=== PATIENT | female | born 1945 | race African-American/Black ===

== ENCOUNTER 2018-03-30 07:30 | Inpatient (IN) ==
[2018-03-30] MEDS ORDERED: Naloxone 0.4 MG/ML INJ IVP PRN (07:57)
--- NOTE | 2018-03-30 09:27 | History & Physical Report ---
Date of Encounter: 03/30/18 Time of Encounter: 08:30 24 Hour HP Update - Instructions Instructions: If the History and Physical is less than 30 days old and was completed prior to A.M. admission and or procedure and has NOT been updated on calendar day of procedure please complete this update prior to performing procedure. - Update Patient reports changes in Medical Condition: No Changes in examination, assessment, or condition: No Changes in Medication: No Preop tests/diagnostics Reviewed: Yes
--- NOTE | 2018-03-30 09:32 | Event Note ---
Date of Encounter: 03/30/18 Time of Encounter: 08:30 - Cardiology Event Note Patient directly admitted to cardiology service for ASA desensitization to ICU. Patient is being evaluated for aortic valve replacement and requires LHC prior. Patient has allergy to ASA, that she took in the 1940s and had hives and d ifficulty breathing. Consult to allergy/immunology, , for ASA desensitization. 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 Last hemoglobin 7.7 03/19/18, will repeat CBC. Will continue to monitor.
[2018-03-30] MEDS ORDERED: Aspirin desensitization 4 mg/ml PO ONE ×4 (10:00)
[2018-03-30] MEDS ORDERED: *HR* EPINEPHrine 1 MG/ML AMPUL IM PRN (10:00)
[2018-03-30] MEDS ORDERED: Famotidine 20 MG/2 ML VIAL IVP PRN (10:00)
[2018-03-30] MEDS ORDERED: *HR* EPINEPHrine 1 MG/ML AMPUL IV PRN (10:00)
[2018-03-30] MEDS ORDERED: Aspirin 81 MG TAB.CHEW PO ONE (10:00)
[2018-03-30] MEDS ORDERED: Aspirin desensitization 1 mg/ml PO ONE ×3 (10:00)
[2018-03-30] MEDS ORDERED: methylPREDNISolone 125 MG/2 ML VIAL IVP PRN (10:00)
[2018-03-30 10:44] LABS: Immature Granulocytes % 0.2 % (0-4)
[2018-03-30 10:46] LABS: Basophils # 0.1 K/mcL (0.0-0.2); Basophils % 1.6 %; Eosinophils # 0.1 K/mcL (0.0-0.6); Eosinophils % 2.7 %; Hemoglobin 7.2 g/dL (11.5-15.4); Lymphocytes # 0.6 K/mcL (0.6-4.6); Lymphocytes % 12.2 %; Mean Corpuscular HGB Conc 28.8 g/dL (31.6-35.5); Mean Corpuscular Hemoglobin 17.8 pg (28.0-33.3); Mean Corpuscular Volume 61.7 fL (83.0-100.0); Monocytes # 0.4 K/mcL (0.0-1.3); Monocytes % 8.3 %; Neutrophils # 3.9 K/mcL (1.6-8.9); Platelet Count 161 K/mcL (140-400); Red Blood Count 4.05 M/mcL (3.82-4.97); Red Cell Distribution Width 25.3 % (11.5-14.5)
[2018-03-30 10:52] LABS: Anisocytosis 2+ (Not Present); Hypochromasia Present (Not Present); Microcytosis Present (Not Present); Platelet Estimate Normal (Normal)
[2018-03-30 11:02] LABS: BUN/Creatinine Ratio 24 (6-26); Blood Urea Nitrogen 18 mg/dL (8-23); Calcium 8.6 mg/dL (8.6-10.3); Carbon Dioxide 32 mEq/L (23-29); Chloride 102 mEq/L (98-107); Glucose 86 mg/dL (70-105); Osmolality,Calculated 287 (280-300); Potassium 4.7 mEq/L (3.5-5.1); Sodium 138 mEq/L (136-145); eGFR For Non-African Americans > 60 (> 60)
--- NOTE | 2018-03-30 11:44 | Discharge Summary ---
- NOTES TO OUTPATIENT PROVIDER Notes to Outpatient Provider: Admitted for ASA desensitization. Of note, has chronic anemia. Recommend close monitoring of hemoglobin, hematocrit as outpatient with addition of ASA. Date of Encounter: 03/30/18 Time of Encounter: 11:42 - Discharge Diagnosis (1) Aspirin allergy Priority: Primary Status: Chronic Comments: Admitted for ASA desensitization. (2) Aortic stenosis Priority: Secondary Status: Chronic Comments: Known . Admitted for ASA desensitization prior to further work up for . Qualifiers: Cardiac valve disease etiology: etiology unspecified Qualified Code(s): I35.0 - Nonrheumatic aortic (valve) stenosis - Hospital Course Hospital course: Ms. Castro is a 73 year old female with a known history of aortic stenosis, who is being worked up for aortic valve replacement. Patient was admitted to [facility] for asa desensitization prior to further work up for aortic stenosis. Patient will require LHC as some point prior to AV replacement. Discussed and reviewed with , who states LHC will be completed as outpatient to see if she tolerates ASA with known chronic anemia. 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 Per PCP's outpatient note, H/H monitored closely and being referred to hem/onc in outpateint setting. Denies bleeding or blood loss. Recommend close monitoring in outpatient setting with addition of ASA. Patient currently recieving ASA per 's protocol. Will plan for tentative discharge pending ASA desensitization and when ok with . Patient is being closely monitoring in ICU. Will arrange cardiology outpatient follow up. - Time Spent with Patient Total time spent providing and/or coordinating discharge services: Less than 30 minutes - Discharge Medications Home Medications: Albuterol Sulfate [Ventolin Hfa] 2 puff IH Q6H PRN 09/03/15 [History] Folic Acid 1 mg PO DAILY 03/30/18 [History] Hydroxychloroquine Sulfate [Plaquenil] 200 mg PO DAILY 03/30/18 [History] Ipratropium/Albuterol Sulfate [Iprat-Albut 0.5-3(2.5) mg/3 ml] 1 vial IH Q6H 03/30/18 [History] Leflunomide 10 mg PO DAILY 03/30/18 [History] Omeprazole [PriLOSEC] 20 mg PO DAILY 03/30/18 [History] Tiotropium Br/Olodaterol HCl [Stiolto Respimat Inhal [place]] 2 puff IH DAILY 03/30/18 [History] Allergies/Adverse Reactions: Allergy/AdvReac Type Severity Reaction Status Date / Time aspirin AdvReac Rash Verified 12/11/15 18:45 Onion AdvReac Rash Verified 12/11/15 18:45 Date of admission: 03/30/18 07:42 Primary care physician: PCP NONE Consults: 03/30/18 09:51 Consult to Allergy/Immunology [CONS] Routine Consulting Provider: Allergy [place] Reason for Consult: ASA desensitization. aware. Call Completed: Yes Discharging clinician: So Shafer Anticipated date of discharge: 03/30/18 Physical Examination Vital Signs, Last 4 Hours Temp Pulse Resp BP Pulse Ox 03/30/18 11:08 98.3 F 74 18 110/51 100 03/30/18 10:54 98.3 F 74 18 112/69 100 03/30/18 10:37 98.4 F 88 19 121/59 100 03/30/18 07:57 98.4 F 106 20 116/92 100 General: Conversant, No Apparent Distress HEENT: Atraumatic, Normocephaly, Mucus Membranes Moist Neck: No JVD, Normal carotid pulses Cardiac: Reg Rate and Rhythm, Normal S1 and S2, No Murmur Lungs: Normal Breath Sounds, No Wheeze, Rales, Rhonchi Neuro: Alert and responsive, No focal deficits noted Abdomen: Soft, Non-Tender Skin: No rashes noted on visualized skin Musculoskeletal: No Chest Wall Tenderness Extremities: No Clubbing, No Cyanosis, No Edema, Normal Pulses - Patient Status Disposition: Home, Self-Care Condition: Good Functional capacity at discharge: independent ambulation Overall status at discharge: patient is progressing back to baseline - Discharge Instructions Follow Up With: NONE,PCP [Primary Care Provider] - - Diet and Activity Activity: increase activity as tolerated Diet: advance to your usual diet
[2018-03-30 14:07] VITALS: BP 126/44
--- NOTE | 2018-03-30 16:28 | Allergy Procedure Note ---
Date of procedure: 03/30/18 Pre-op diagnosis: Adverse effect of drug, medicament, or biological substance (aspirin allerg Post-op diagnosis: same Procedure: Aspirin Desensitization Patient with history of aspirin allergy. See consult note for HPI details. I discussed risk and benefits with patient. I explained to patient the risk of an allergic reaction including itching, hives, swelling, airway closure, diarrhea, vomiting, drop in blood pressure, heart attack, or . Written consent obtained. Epinephrine, solumedrol, benadryl and pepcid at bedside. Dose 1- 0.1mg aspirin given PO, patient observed closely x 15 minutes, exam unchanged, patient denies any new complaints, vitals unchanged(see vitals recorded under vitals section) Dose 2- 0.3mg aspirin given PO, patient observed closely x 15 minutes, exam unchanged, patient denies any new complaints, vitals unchanged(see vitals recorded under vitals section) Dose 3- 1mg aspirin given PO, patient observed closely x 15 minutes, exam unchanged, patient denies any new complaints, vitals unchanged(see vitals recor ded under vitals section) Dose 4- 3mg aspirin given PO, patient observed closely x 15 minutes, exam unchanged, patient denies any new complaints, vitals unchanged(see vitals recorded under vitals section) Dose 5-10mg aspirin given PO, patient observed closely x 15 minutes, exam unchanged, patient denies any new complaints, vitals unchanged(see vitals recorded under vitals section) Dose 6-20mgmg aspirin given PO, patient observed closely x 15 minutes, exam unchanged, patient denies any new complaints, vitals unchanged(see vitals recorded under vitals section) Dose 7-40mg aspirin given PO, patient observed closely x 15 minutes, exam unchanged, Patient developed itching on back which resolved in 10 minutes without intervention, patients exam never changed, vitals unchanged(see vitals recorded under vitals section) Dose 8-81mg aspirin given PO, patient observed closely x 120 minutes, exam unchanged, patient denies any new complaints, vitals unchanged(see vitals recorded under vitals section) Patient has tolerated the procedure well. She is desensitized to aspirin. She should take 81mg daily. If she goes longer than 48 hours without aspirin she should then not take it and would need the procedure again. Total time spent with patient 3hours 45minutes. Anesthesia: none Was there an conference assistant present: Yes Light Truck Driver: Susan Nassar Condition: stable
--- NOTE | 2018-03-30 16:33 | Allergy Consult Note ---
Date of Encounter: 03/30/18 Time of Encounter: 10:00 Assessment and Plan (1) Adverse effect of other drugs, medicaments and biological substances, initial encounter Status: Acute Patient has history of aspirin allergy and requires aspirin per cardiology. Patient is admitted to ICU today for desensitization. 1. NPO 2. Consent signed 3. Patient will need to take 81mg of aspirin daily and if she goes longer than 48 hours without aspirin then she would need desensitization again. History of Present Illness Consult date: 03/30/18 Reason for consult: Drug allergy Requesting physician: Bhargavi Roberson History of present illness: 73 year old female presents today for aspirin desensitization. States when she was a child sometime in the 1940s she took aspirin and broke out in hives and had breathing difficulty. States she is able to take Aleve currently without issues. Past Med Surg Social Fam HX - Past Medical History Medical history: COPD Psychiatric history: no psych history - Past Surgical History Surgical History: appendectomy, hysterectomy, other Additional surgical history: abd tumor removal - Social History Smoking Status: Unknown if ever smoked Alcohol use: none Drug use: none - Family History Father Hx Family Cancer: Yes (unknown what kind) Medications and Allergies Albuterol Sulfate [Ventolin Hfa] 2 puff IH Q6H PRN 09/03/15 [History] Aspirin Enteric Coated [Aspirin EC] 81 mg PO DAILY #30 tablet. 03/30/18 [Rx] Folic Acid 1 mg PO DAILY 03/30/18 [History] Hydroxychloroquine Sulfate [Plaquenil] 200 mg PO DAILY 03/30/18 [History] Ipratropium/Albuterol Sulfate [Iprat-Albut 0.5-3(2.5) mg/3 ml] 1 vial IH Q6H 03/30/18 [History] Leflunomide 10 mg PO DAILY 03/30/18 [History] Omeprazole [PriLOSEC] 20 mg PO DAILY 03/30/18 [History] Tiotropium Br/Olodaterol HCl [Stiolto Respimat Inhal [place]] 2 puff IH DAILY 03/30/18 [History] Allergy/AdvReac Type Severity Reaction Status Date / Time aspirin AdvReac Rash Verified 12/11/15 18:45 Onion AdvReac Rash Verified 12/11/15 18:45 ROS Allergy - Constitutional Constitutional ROS: no headache(s) - EENT Nose, mouth and throat: no nasal congestion, no nasal discharge, no throat swelling, no tongue swelling - Cardiovascular Cardiovascular ROS IM: no chest pain - Respiratory dyspnea on exertion - Gastrointestinal Gastrointestinal: no nausea - Integumentary Integumentary: no rash - Allergic/Immunologic no tongue swelling, no throat swelling, no itchy eyes, no uticaria, no lip swelling Allergy Exam Initial Vital Signs Temp Pulse Resp BP Pulse Ox 98.4 F 106 20 116/92 100 03/30/18 07:57 03/30/18 07:57 03/30/18 07:57 03/30/18 07:57 03/30/18 07:57 - General physical appearance other (under weight) - Eyes other (no erythema) - ENT normal nares - Neck no lymphadectomy - Respiratory other (patient had decreased air movement, no audible wheezing, no distress or retractions, patient had improved air movement after 2 puffs of albuterol) - Abdomen Abdomen: non tender - Integumentary no rash - Additional Findings heart -RRR Results - Labs 03/30/18 10:24 03/30/18 10:24 Abnormal lab results Hgb 7.2 g/dL (11.5-15.4) L 03/30/18 10:24 Hct 25.0 % (35.3-44.9) L 03/30/18 10:24 MCV 61.7 fL (83.0-100.0) L 03/30/18 10:24 MCH 17.8 pg (28.0-33.3) L 03/30/18 10:24 MCHC 28.8 g/dL (31.6-35.5) L 03/30/18 10:24 RDW 25.3 % (11.5-14.5) H 03/30/18 10:24 Hypochromasia Present (Not Present) A 03/30/18 10:24 Anisocytosis 2+ (Not Present) A 03/30/18 10:24 Microcytosis Present (Not Present) A 03/30/18 10:24 Carbon Dioxide 32 mEq/L (23-29) H 03/30/18 10:24 POC Glucose 100 mg/dL (70-99) H 03/30/18 08:03 Diabetes panel 03/30/18 Range/Units 10:24 Sodium 138 (136-145) mEq/L Potassium 4.7 (3.5-5.1) mEq/L Chloride 102 (98-107) mEq/L Carbon Dioxide 32 H (23-29) mEq/L BUN 18 (8-23) mg/dL Creatinine 0.76 (0.60-1.20) mg/dL Glucose 86 (70-105) mg/dL Calcium 8.6 (8.6-10.3) mg/dL Calcium panel 03/30/18 Range/Units 10:24 Calcium 8.6 (8.6-10.3) mg/dL Pituitary panel 03/30/18 Range/Units 10:24 Sodium 138 (136-145) mEq/L Potassium 4.7 (3.5-5.1) mEq/L Chloride 102 (98-107) mEq/L Carbon Dioxide 32 H (23-29) mEq/L BUN 18 (8-23) mg/dL Creatinine 0.76 (0.60-1.20) mg/dL Glucose 86 (70-105) mg/dL Calcium 8.6 (8.6-10.3) mg/dL Adrenal panel 03/30/18 Range/Units 10:24 Sodium 138 (136-145) mEq/L Potassium 4.7 (3.5-5.1) mEq/L Chloride 102 (98-107) mEq/L Carbon Dioxide 32 H (23-29) mEq/L BUN 18 (8-23) mg/dL Creatinine 0.76 (0.60-1.20) mg/dL Glucose 86 (70-105) mg/dL Calcium 8.6 (8.6-10.3) mg/dL All other labs normal. Consult Discharge Plan - Plan Instructions: Aspirin (By mouth), Chronic Obstructive Pulmonary Disease (DC) Referrals: NONE,PCP [Primary Care Provider] - Prescriptions: Aspirin Enteric Coated [Aspirin EC] 81 mg PO DAILY #30 tablet.
== END 2018-03-30 14:38 | disposition home or self-care (01) | DRG 951 ==
LOC: ICNU → OBSVTOIN 07:42
PROVIDERS: ADMIT Internal Medicine Cardiovascular Disease; ATTEND Internal Medicine Cardiovascular Disease

== ENCOUNTER 2018-12-08 10:24 | Inpatient (IN) ==
[2018-12-08] MEDS ORDERED: methylPREDNISolone 125 MG/2 ML VIAL IVP ONE (10:34)
[2018-12-08] MEDS ORDERED: Ipratropium/Albuterol Neb 3 ML IH ONE (10:34)
--- NOTE | 2018-12-08 10:37 | Emergency Department Note ---
Disposition Clinical Impression: COPD (chronic obstructive pulmonary disease) Qualifiers: COPD type: COPD with acute exacerbation Qualified Code(s): J44.1 - Chronic obstructive pulmonary disease with (acute) exacerbation Disposition: Admitted As Inpatient Condition: Good Time of Disposition: 12:04 General Adult HPI - General Stated complaint: ADRIENNE Time Seen by Provider: 12/08/18 10:28 - History of Present Illness HPI Narrative: Patient 73-year-old female presents to emergency room with chief complaint of shortness of breath. Patient reports started having difficult breathing or act ually 2 days ago. Patient reports 3 days ago she stop smoking and 7 patient reports she has history of congestive heart failure and also COPD. Patient states that she has prior history of a leaky valve and states that she cannot get a good deep breath and states that she has been having these additional oxygen. The patient reports that it is worsened with exertion and states that she has been having such difficulty breathing she has been unable to eat for the last 2 days. The patient reports that it is not improved by anything - Related Data Home Medications Medication Instructions Recorded Confirmed Albuterol Sulfate [Ventolin Hfa] 2 puff IH Q4H PRN 09/03/15 12/08/18 Folic Acid 1 mg PO DAILY 03/30/18 12/08/18 Hydroxychloroquine Sulfate 200 mg PO DAILY 03/30/18 12/08/18 [Plaquenil] Ipratropium/Albuterol Sulfate 1 vial IH Q6H 03/30/18 12/08/18 [Iprat-Albut 0.5-3(2.5) mg/3 ml] Leflunomide 20 mg PO DAILY 03/30/18 12/08/18 Omeprazole [PriLOSEC] 20 mg PO DAILY 03/30/18 12/08/18 Tiotropium Br/Olodaterol HCl 2 puff IH DAILY 03/30/18 12/08/18 [Stiolto Respimat Inhal [place]] LORazepam [Ativan] 0.5 mg PO PRN PRN 04/22/18 12/08/18 Naproxen Sodium [Aleve] 220 mg PO Q12-24H PRN 04/22/18 12/08/18 Oxygen 1 each .ROUTE AD 06/22/18 12/08/18 Fluticasone Propionate [Flovent 1 puff IH BID 07/16/18 12/08/18 Hfa] Previous Rx's Medication Instructions Recorded Aspirin Enteric Coated [Aspirin EC] 81 mg PO DAILY #30 tablet. 03/30/18 Furosemide [Lasix] 20 mg PO DAILY PRN #15 tablet 07/19/18 Allergies Allergy/AdvReac Type Severity Reaction Status Date / Time Onion AdvReac Rash Verified 10/19/18 09:28 Sulfa (Sulfonamide AdvReac See Verified 10/19/18 09:28 Antibiotics) Comments All systems ED: reviewed and negative except as stated. Past Medical History - Past Medical History Medical history: Reports: COPD, GERD, valvular heart disease Surgical history: Reports: appendectomy, hysterectomy, other Psychiatric history: Reports: no psych history, anxiety - Social History Smoking Status: Current every day smoker Smokeless Tobacco Status: No Alcohol use: Reports: none Drug use: Reports: none Physical Exam General: Conversant and pleasant interactive and nontoxic. Head: Normocephalic/atraumatic Eyes:PERRLA, EOMI, no conjunctivitis Nares: Without d/c. Ears: No erythema or d/c noted. Oralpharnyx: P&MMM noted, Neck: Supple, no JVD or SURGICAL AIDE noted. Cardovascular: regular rate and rhythm without murmur, brisk capillary refill, no peripheral edema. Lungs: Diminished breath sounds bilaterally increased respiratory drive with mild to moderate respiratory distress, Abd: Soft nontender, Non Distended, no guarding, no rebound. : Defered Extremities: moves all extremities equally Neuro: AOx3, no obvious gross neuro deficit Psych: Normal Affect Derm: No rash noted Course Course Narrative: Patient has had improvement with the treatments and steroids in the ER still moderately short of breath. The chest x-ray shows no evidence of focal infiltrate the case was discussed with the hospitalist admit her and the patient will be accepted to the hospitalist service.. Vital Signs Temperature 98.9 F 12/08/18 10:29 Pulse Rate 114 12/08/18 10:29 Respiratory Rate 25 12/08/18 10:29 Blood Pressure 115/52 12/08/18 10:29 O2 Sat by Pulse Oximetry 100 12/08/18 10:29 Temperature 98.9 F 12/08/18 10:29 Pulse Rate 114 12/08/18 10:29 Respiratory Rate 18 12/08/18 11:13 Blood Pressure 115/52 08/28/19 10:29 O2 Sat by Pulse Oximetry 100 12/08/18 11:13 Oxygen Delivery Oxygen Delivery Nasal Cannula Medical Decision Making - Lab Data Result diagrams: 12/08/18 10:50 12/08/18 10:50 Lab Results 12/08/18 12/08/18 12/08/18 Range/Units 10:49 10:50 10:50 WBC 6.9 (4.3-11.1) K/mcL RBC 4.22 (3.82-4.97) M/mcL Hgb 7.8 L (11.5-15.4) g/dL Hct 29.1 L (35.3-44.9) % MCV 69.0 L (83.0-100.0) fL MCH 18.5 L (28.0-33.3) pg MCHC 26.8 L (31.6-35.5) g/dL RDW 26.7 H (11.5-14.5) % Plt Count 156 (140-400) K/mcL MPV TNP Immature Gran % 0.3 (0-4) % Seg Neutrophils % 85.3 % Lymphocytes % 4.5 % Monocytes % 9.2 % Eosinophils % 0.1 % Basophils % 0.6 % Neutrophils # 5.9 (1.6-8.9) K/mcL Lymphocytes # 0.3 L (0.6-4.6) K/mcL Monocytes # 0.6 (0.0-1.3) K/mcL Eosinophils # 0.0 (0.0-0.6) K/mcL Basophils # 0.0 (0.0-0.2) K/mcL Nucleated RBCs/100 WBC 0.3 H (0) /100 WBC Platelet Estimate Decreased L (Normal) Hypochromasia Present A (Not Present) Poikilocytosis 1+ A (Not Present) Anisocytosis 3+ A (Not Present) Microcytosis Present A (Not Present) Target Cells 1+ A (Not Present) Sodium 129 L (136-145) mEq/L Potassium 5.1 (3.5-5.1) mEq/L Chloride 87 L (98-107) mEq/L Carbon Dioxide 37 H (23-29) mEq/L BUN 34 H (8-23) mg/dL Creatinine 0.67 (0.60-1.20) mg/dL Est GFR ( Amer) > 60 (> 60) Est GFR (Non-Af Amer) > 60 (> 60) BUN/Creatinine Ratio 51 H (6-26) Glucose 106 H (70-105) mg/dL Calculated Osmolality 276 L (280-300) Lactic Acid (0.5-2.2) mmol/L Calcium 8.9 (8.6-10.3) mg/dL Troponin I 0.03 (< 0.04) ng/mL B-Natriuretic Peptide 493 H (Less than 100) pg/mL 12/08/18 Range/Units 10:50 WBC (4.3-11.1) K/mcL RBC (3.82-4.97) M/mcL Hgb (11.5-15.4) g/dL Hct (35.3-44.9) % MCV (83.0-100.0) fL MCH (28.0-33.3) pg MCHC (31.6-35.5) g/dL RDW (11.5-14.5) % Plt Count (140-400) K/mcL MPV Immature Gran % (0-4) % Seg Neutrophils % % Lymphocytes % % Monocytes % % Eosinophils % % Basophils % % Neutrophils # (1.6-8.9) K/mcL Lymphocytes # (0.6-4.6) K/mcL Monocytes # (0.0-1.3) K/mcL Eosinophils # (0.0-0.6) K/mcL Basophils # (0.0-0.2) K/mcL Nucleated RBCs/100 WBC (0) /100 WBC Platelet Estimate (Normal) Hypochromasia (Not Present) Poikilocytosis (Not Present) Anisocytosis (Not Present) Microcytosis (Not Present) Target Cells (Not Present) Sodium (136-145) mEq/L Potassium (3.5-5.1) mEq/L Chloride (98-107) mEq/L Carbon Dioxide (23-29) mEq/L BUN (8-23) mg/dL Creatinine (0.60-1.20) mg/dL Est GFR ( Amer) (> 60) Est GFR (Non-Af Amer) (> 60) BUN/Creatinine Ratio (6-26) Glucose (70-105) mg/dL Calculated Osmolality (280-300) Lactic Acid 0.7 (0.5-2.2) mmol/L Calcium (8.6-10.3) mg/dL Troponin I (< 0.04) ng/mL B-Natriuretic Peptide (Less than 100) pg/mL
[2018-12-08 11:03] LABS: Eosinophils % 0.1 %; Hemoglobin 7.8 g/dL (11.5-15.4); Immature Granulocytes % 0.3 % (0-4)
[2018-12-08 11:04] LABS: Basophils % 0.6 %; Hematocrit 29.1 % (35.3-44.9); Lymphocytes # 0.3 K/mcL (0.6-4.6); Lymphocytes % 4.5 %; Mean Corpuscular HGB Conc 26.8 g/dL (31.6-35.5); Mean Corpuscular Hemoglobin 18.5 pg (28.0-33.3); Monocytes # 0.6 K/mcL (0.0-1.3); Monocytes % 9.2 %; Neutrophils # 5.9 K/mcL (1.6-8.9); Nucleated Red Blood Cells 0.3 /100 WBC (0); Platelet Count 156 K/mcL (140-400); Red Blood Count 4.22 M/mcL (3.82-4.97); Red Cell Distribution Width 26.7 % (11.5-14.5); Segmented Neutrophils % 85.3 %; White Blood Count 6.9 K/mcL (4.3-11.1)
[2018-12-08 11:24] LABS: BUN/Creatinine Ratio 51 (6-26); Blood Urea Nitrogen 34 mg/dL (8-23); Calcium 8.9 mg/dL (8.6-10.3); Carbon Dioxide 37 mEq/L (23-29); Chloride 87 mEq/L (98-107); Glucose 106 mg/dL (70-105); Osmolality,Calculated 276 (280-300); Potassium 5.1 mEq/L (3.5-5.1); Sodium 129 mEq/L (136-145); Troponin I 0.03 ng/mL (< 0.04); eGFR For African Americans > 60 (> 60); eGFR For Non-African Americans > 60 (> 60)
[2018-12-08] MEDS ORDERED: Aspirin 325 MG TABLET PO SCH (11:45)
[2018-12-08 11:49] LABS: Anisocytosis 3+ (Not Present); Hypochromasia Present (Not Present); Microcytosis Present (Not Present); Platelet Estimate Decreased (Normal)
[2018-12-08 11:50] LABS: Poikilocytosis 1+ (Not Present); Target Cells 1+ (Not Present)
[2018-12-08] MEDS ORDERED: *HR* LORazepam 0.5 MG TABLET PO PRN (13:19)
[2018-12-08] MEDS ORDERED: Naloxone 0.4 MG/ML INJ IVP PRN (13:21)
[2018-12-08] MEDS ORDERED: Ondansetron 4 MG/2 ML VIAL IVP PRN (13:21)
--- NOTE | 2018-12-08 13:27 | Internal Med History&Physical ---
Date of Encounter: 12/08/18 Time of Encounter: 13:00 Internal Medicine - H&P: HPI Chief complaint: SOB Admitted From: Home History of present illness: Ms. Castro is a 73 year old female with history of oxygen dependent COPD, pulmonary hypertension, heart failure with preserved EF, severe aortic stenosis, presented to the ED with 3 day history of worsening dyspnea. Started gradually, associated with cough without mild sputum production that she is unable to characterize. She denies any fever/chills, sick contacts, chest pain, hemoptysis, palpitation, orthopnea, PND, or leg swelling. Denies any recent travel history or prolonged immobilization. Denies any nausea/vomiting, abdominal pain, change in bowel habits, or dysuria. She was using her nebulizer up to 2 times a day without significant relief hence decided come to the hospital for further evaluation. In the ED, she was afebrile but tachycardic and tachypneic. Saturating percent on 2.5 L on nasal cannula. Labwork showed known anemia of 7.8 and mild hyponatremia of 129. Creatinine was at her baseline but BUN was elevated at 34. Troponin negative, EKG shows sinus tachyc ardia without ST elevations. Chest x-ray did not show any acute cardiopulmonary process. She was given DuoNeb, IV Solu-Medrol, and admitted for further management. Past Med Surg Social Fam HX - Past Medical History Medical history: COPD, GERD, RA, valvular heart disease Additional medical history: chronic anemia-sees oncology for it Psychiatric history: no psych history, anxiety - Past Surgical History Surgical History: appendectomy, hysterectomy, other Additional surgical history: abd tumor removal 2003 - Social History Smoking Status: Current every day smoker Smokeless Tobacco Status: No Alcohol use: none Drug use: none - Family History Father Hx Family Cancer: Yes (unknown what kind) Internal Medicine - H&P: Meds Albuterol Sulfate [Ventolin Hfa] 2 puff IH Q4H PRN 09/03/15 [History] Aspirin Enteric Coated [Aspirin EC] 81 mg PO DAILY #30 tablet. 03/30/18 [Rx] Folic Acid 1 mg PO DAILY 03/30/18 [History] Hydroxychloroquine Sulfate [Plaquenil] 200 mg PO DAILY 03/30/18 [History] Ipratropium/Albuterol Sulfate [Iprat-Albut 0.5-3(2.5) mg/3 ml] 1 vial IH Q6H 03/30/18 [History] Leflunomide 20 mg PO DAILY 03/30/18 [History] Omeprazole [PriLOSEC] 20 mg PO DAILY 03/30/18 [History] Tiotropium Br/Olodaterol HCl [Stiolto Respimat Inhal Brewer] 2 puff IH DAILY 03/30/18 [History] LORazepam [Ativan] 0.5 mg PO PRN PRN 04/22/18 [History] Naproxen Sodium [Aleve] 220 mg PO Q12-24H PRN 04/22/18 [History] Oxygen 1 each .ROUTE AD 06/22/18 [History] Fluticasone Propionate [Flovent Hfa] 1 puff IH BID 07/16/18 [History] Furosemide [Lasix] 20 mg PO DAILY PRN #15 tablet 07/19/18 [Rx] Allergy/AdvReac Type Severity Reaction Status Date / Time Onion AdvReac Rash Verified 10/19/18 09:28 Sulfa (Sulfonamide AdvReac See Verified 10/19/18 09:28 Antibiotics) Comments All Systems PM: A 10-system review of systems was performed and is negative for pertinent findings except as documented above in the HPI. - Constitutional Vitals: Temp Pulse Resp BP Pulse Ox 98.9 F 114 20 110/42 100 12/08/18 10:29 12/08/18 10:29 12/08/18 12:49 12/08/18 12:49 12/08/18 11:13 Exam: General: Alert and oriented, mild distres and pursed lip breathing noted. Cachectic HEENT:EOMI, pupils equal, round and reactive. Cardiovascular:Normal S1 & S2, No JVD. Pulse regular and borderline tachycardic Lungs: Diminished bilaterally with scattered wheezes Abdomen:Soft, non-tender, no rigidity. Extremities:No deformity or swelling Neurological:Normal cognition and motor skills. Non-focal Skin:Normal color, no rash, no lesions. Pulses:Carotid and radial pulses normal +2. Rest of the physical exam is non contributory Internal Med - H&P Results - Labs CBC & Chem 7: 12/08/18 10:50 12/08/18 10:50 Labs: Short CBC 12/08/18 Range/Units 10:50 WBC 6.9 (4.3-11.1) K/mcL Hgb 7.8 L (11.5-15.4) g/dL Hct 29.1 L (35.3-44.9) % Plt Count 156 (140-400) K/mcL Neutrophils # 5.9 (1.6-8.9) K/mcL BMP 12/08/18 10:50 Sodium 129 L Potassium 5.1 Chloride 87 L Carbon Dioxide 37 H BUN 34 H Creatinine 0.67 Glucose 106 H Calcium 8.9 Cardiac Enzymes 12/08/18 Range/Units 10:50 Troponin I 0.03 (< 0.04) ng/mL - Impressions ITS Impressions Chest X-Ray 12/08/18 10:34 IMPRESSION: Small bilateral pleural effusions with bibasilar atelectasis. Advanced emphysematous changes. D/ / Jake Mendoza MD / Jake Mendoza MD Interpreting Provider: Jake Mendoza MD - Assessment and Plan (1) Acute exacerbation of chronic obstructive airways disease Current Visit: Yes Status: Acute Assessment and plan: Presented with progressive dyspnea and cough. Chest x-ray without infiltrates. No leukocytosis or fever. Patient has mild symptomatic improvement after being started on IV Solu-Medrol and DuoNeb as well. will continue steroid and schedule bronchodilator Check respiratory viral panel (2) Dehydration Current Visit: Yes Status: Acute Assessment and plan: Although her creatinine is at her baseline, her BUN/creatinine ratio is suggestive of mild dehydration in the setting of poor oral intake due to the above Hyponatremia can also be related to hypovolemic hyponatremia Will give 1 L of IV fluid overnight and monitor BMP Hold off on Lasix (3) Aortic stenosis Current Visit: No Status: Chronic Assessment and plan: currently being planned for TAVR Qualifiers: Cardiac valve disease etiology: etiology unspecified Qualified Code(s): I35.0 - Nonrheumatic aortic (valve) stenosis (4) Pulmonary HTN Current Visit: No Status: Chronic Assessment and plan: Last echocardiogram 03/2018 showed severe pulmonary hypertension, Poor overall p rognosis (5) Chronic diastolic heart failure Current Visit: Yes Status: Chronic Assessment and plan: Not in decompensation, Lasix on hold due to dehydration as above (6) Anemia Current Visit: No Status: Chronic Assessment and plan: History of thalassemia Hb 7.8 which is slightly lower than her baseline but she denies any signs and symptoms of bleeding will check FOBT prior to initiating subcutaneous heparin for DVT prophylaxis Qualifiers: Anemia type: other cause Other causes of anemia: other cause, not classified Qualified Code(s): D64.89 - Other specified anemias (7) DVT prophylaxis Current Visit: No Status: Acute Assessment and plan: EPCD while waiting for FOBT - Time Spent With Patient Total time spent is greater than 50% in coordination of care (as documented) at patient's floor/unit and/or counseling patient: 25 - 35 minutes
[2018-12-08] MEDS ORDERED: 0.9 % Sodium Chloride 1,000 ML IVC SCH (13:30)
[2018-12-08] MEDS: Ipratropium/Albuterol Neb 3 ML IH SCH ×3 (15:22→23:59)
[2018-12-08] MEDS ORDERED: NON-FORMULARY MEDICATION 1 EACH EACH (Fluticasone Propionate [Flovent Hfa] 1 PUFF) IH SCH (21:00)
[2018-12-09 02:37] LABS: Nucleated Red Blood Cells 0.5 /100 WBC (0); Red Cell Distribution Width 26.5 % (11.5-14.5)
[2018-12-09 02:38] LABS: Hemoglobin 6.1 g/dL (11.5-15.4); Immature Granulocytes % 0.3 % (0-4); Lymphocytes # 0.2 K/mcL (0.6-4.6); Lymphocytes % 4.8 %; Mean Corpuscular HGB Conc 26.5 g/dL (31.6-35.5); Mean Corpuscular Hemoglobin 17.9 pg (28.0-33.3); Mean Corpuscular Volume 67.4 fL (83.0-100.0); Monocytes # 0.7 K/mcL (0.0-1.3); Monocytes % 16.5 %; Neutrophils # 3.1 K/mcL (1.6-8.9); Platelet Count 102 K/mcL (140-400); Red Blood Count 3.41 M/mcL (3.82-4.97); Segmented Neutrophils % 78.4 %
[2018-12-09 02:55] LABS: BUN/Creatinine Ratio 40 (6-26); Blood Urea Nitrogen 37 mg/dL (8-23); Calcium 7.8 mg/dL (8.6-10.3); Carbon Dioxide 37 mEq/L (23-29); Chloride 91 mEq/L (98-107); Glucose 132 mg/dL (70-105); Osmolality,Calculated 285 (280-300); Potassium 4.7 mEq/L (3.5-5.1); Sodium 132 mEq/L (136-145); eGFR For African Americans > 60 (> 60); eGFR For Non-African Americans 59 (> 60)
[2018-12-09 03:36] LABS: Hypochromasia Present (Not Present); Microcytosis Present (Not Present); Poikilocytosis 1+ (Not Present); Target Cells 1+ (Not Present)
[2018-12-09 03:37] LABS: Anisocytosis 2+ (Not Present); Platelet Estimate Slight Decrease (Normal); Tear Drop Cells 1+ (Not Present)
[2018-12-09] MEDS: Ipratropium/Albuterol Neb 3 ML IH SCH ×6 (03:48→23:58)
[2018-12-09 07:58] LABS: Adenovirus Not Detected (Not Detect); Bordetella Pertussis Not Detected (Not Detect); Chlamydophila pneumoniae Not Detected (Not Detect); Coronavirus 229E Not Detected (Not Detect); Coronavirus HKU1 Not Detected (Not Detect); Coronavirus NL63 Not Detected (Not Detect); Coronavirus OC43 Not Detected (Not Detect); Human Metapneumovirus Not Detected (Not Detect); Human Rhinovirus/Enterovirus Not Detected (Not Detect); Influenza A Subtype 2009 H1 Not Detected (Not Detect); Influenza A Untypeable Not Detected (Not Detect); Influenza B Not Detected (Not Detect); Mycoplasma pneumoniae Not Detected (Not Detect); Parainfluenza Virus 1 Not Detected (Not Detect); Parainfluenza Virus 2 Not Detected (Not Detect); Parainfluenza Virus 3 Not Detected (Not Detect); Parainfluenza Virus 4 Not Detected (Not Detect); Respiratory Syncytial Virus Not Detected (Not Detect)
[2018-12-09] MEDS ORDERED: MethylPREDNISolone 40 MG/ML VIAL IVP SCH (08:00)
[2018-12-09 08:14] LABS: % Iron Saturation 27 % (15-50); Iron 40 mcg/dL (50-170); Transferrin 106 mg/dL (203-362)
[2018-12-09 08:21] LABS: Hematocrit 24.6 % (35.3-44.9); Hemoglobin 6.6 g/dL (11.5-15.4)
[2018-12-09] MEDS: Folic Acid 1 MG TABLET PO SCH (08:21)
[2018-12-09] MEDS ORDERED: Aspirin Enteric Coated 81 MG Tablet PO SCH (09:00)
[2018-12-09] MEDS ORDERED: 0.9 % Sodium Chloride 500 ML ONE (09:10)
--- NOTE | 2018-12-09 11:56 | Internal Med Progress Note ---
Hospitalist Progress Note - Encounter Date of Encounter: 12/09/18 Time of Encounter: 10:45 - Subjective Interval History: Minimal improvement in her shortness of breath, denies any melena, hematemesis, hematochezia, or bright red blood per rectum. According to the RN, patient had dark stool this morning which pt reports that it is her usual BM. - Exam Vitals: Temp Pulse Resp BP Pulse Ox 98.0 F 94 16 123/54 98 12/09/18 11:24 12/09/18 11:24 12/09/18 11:24 12/09/18 11:24 12/09/18 11:24 Exam: General: Alert and oriented, mild distres and pursed lip breathing noted. Cachectic HEENT:EOMI, pupils equal, round and reactive. Cardiovascular:Normal S1 & S2, No JVD. Pulse regular and borderline tachycardic Lungs: Diminished bilaterally with scattered wheezes Abdomen:Soft, non-tender, no rigidity. Extremities:No deformity or swelling Neurological:Normal cognition and motor skills. Non-focal Skin:Normal color, no rash, no lesions. Pulses:Carotid and radial pulses normal +2. Rest of the physical exam is non contributory - Assessment and Plan (1) Acute exacerbation of chronic obstructive airways disease Current Visit: Yes Status: Acute Assessment and Plan: Presented with progressive dyspnea and cough. Chest x-ray without infiltrates. No leukocytosis or fever. Patient has mild symptomatic improvement after being started on IV Solu-Medrol and DuoNeb as well. Respiratory viral panel -ve continue steroid and schedule bronchodilator (2) Anemia Current Visit: No Status: Chronic Assessment and Plan: Hemoglobin dropped from 7.8-6.1 this morning, 6.6 on repeat prior EGD/colonoscopy in 2016 were both unremarkable 1U pRBC transfusion today will hold off on ASA, switch PPI to IV 40mg BID and check FOBT. Would consider consulting GI depending on the result (3) Aortic stenosis Current Visit: No Status: Chronic Assessment and Plan: currently being planned for TAVR (4) Pulmonary HTN Current Visit: No Status: Chronic Assessment and Plan: Last echocardiogram 03/2018 showed severe pulmonary hypertension, Poor overall prognosis (5) Chronic diastolic heart failure Current Visit: Yes Status: Chronic Assessment and Plan: Not in decompensation, resume lasix from tomorrow (6) DVT prophylaxis Current Visit: No Status: Acute Assessment and Plan: EPCD while waiting for FOBT - Time Spent with Patient Total time spent is greater than 50% in coordination of care (as documented) at patient's floor/unit and/or counseling patient: 25 - 35 minutes Plan of Care Discussed with: patient Internal Medicine: Result - Labs CBC & Chem 7: 12/09/18 08:05 12/09/18 02:02 Labs: Short CBC 12/09/18 12/09/18 Range/Units 02:02 08:05 WBC 4.0 L (4.3-11.1) K/mcL Hgb 6.1 L D 6.6 L (11.5-15.4) g/dL Hct 23.0 L 24.6 L (35.3-44.9) % Plt Count 102 L (140-400) K/mcL Neutrophils # 3.1 (1.6-8.9) K/mcL BMP 12/09/18 02:02 Sodium 132 L Potassium 4.7 Chloride 91 L Carbon Dioxide 37 H BUN 37 H Creatinine 0.93 Glucose 132 H Calcium 7.8 L Cardiac Enzymes 12/08/18 Range/Units 16:26 Troponin I < 0.03 (< 0.04) ng/mL Consult Discharge Plan - Plan (2) Anemia Qualifiers: Anemia type: other cause Other causes of anemia: other cause, not classified Qualified Code(s): D64.89 - Other specified anemias (3) Aortic stenosis Qualifiers: Cardiac valve disease etiology: etiology unspecified Qualified Code(s): I35.0 - Nonrheumatic aortic (valve) stenosis
[2018-12-09] MEDS ORDERED: Furosemide 20 MG TABLET PO PRN (11:58)
[2018-12-09] MEDS ORDERED: Furosemide 20 MG/2 ML VIAL IVP ONE ×2 (12:12→12:16)
[2018-12-09] MEDS ORDERED: *HR* LORazepam 2 MG/ML VIAL ONE (12:16)
[2018-12-09 12:25] LABS: ABG Base Excess 10 mEq/L (-2 to 3); ABG HCO3 40 mEq/L (21-27); ABG Oxygen Saturation 96 % (95-98); ABG PCO2 92 mmHg (35-45); ABG PH 7.25 pH Units (7.32-7.45); ABG PO2 105 mmHg (85-104); ABG TCO2 43 mEq/L (20-26)
[2018-12-09] MEDS: *HR* LORazepam 2 MG/ML VIAL IVP PRN ×2 (12:32→22:13)
[2018-12-09] MEDS: MethylPREDNISolone 40 MG/ML VIAL IVP SCH ×2 (13:45→22:13)
[2018-12-09 15:13] LABS: Hematocrit 33.4 % (35.3-44.9); Hemoglobin 9.4 g/dL (11.5-15.4)
[2018-12-09 15:34] LABS: ABG Base Excess 12 mEq/L (-2 to 3); ABG HCO3 42 mEq/L (21-27); ABG Oxygen Saturation 99 % (95-98); ABG PCO2 89 mmHg (35-45); ABG PH 7.28 pH Units (7.32-7.45); ABG PO2 184 mmHg (85-104); ABG TCO2 45 mEq/L (20-26)
[2018-12-09 16:12] LABS: Bilirubin,Urine Negative (Negative); Blood,Urine Trace (Negative); Clarity,Urine Clear (Clear); Color,Urine Yellow (Yellow); Glucose,Urine (UA) Normal (Normal); Ketones,Urine Negative (Negative); Leukocyte Esterase,Urine Negative (Negative); Nitrite,Urine Negative (Negative); Protein,Urine 30 mg/dL (Neg-Trace); Specific Gravity,Urine 1.011 (1.010-1.025); Urobilinogen,Urine Normal (Normal)
[2018-12-09] MEDS: Pantoprazole 40 MG VIAL IVP SCH (17:44)
[2018-12-10] MEDS ORDERED: Morphine Sulfate 2 MG/ML SYRINGE IVP ONE (04:30)
[2018-12-10] MEDS: MethylPREDNISolone 40 MG/ML VIAL IVP SCH ×3 (04:42→19:58)
[2018-12-10] MEDS: Ipratropium/Albuterol Neb 3 ML IH SCH ×6 (04:54→23:58)
[2018-12-10 05:04] LABS: Hematocrit 36.6 % (35.3-44.9); Hemoglobin 10.2 g/dL (11.5-15.4); Mean Corpuscular HGB Conc 27.9 g/dL (31.6-35.5); Mean Corpuscular Hemoglobin 20.4 pg (28.0-33.3); Mean Corpuscular Volume 73.1 fL (83.0-100.0); Platelet Count 191 K/mcL (140-400); Red Blood Count 5.01 M/mcL (3.82-4.97); White Blood Count 10.9 K/mcL (4.3-11.1)
[2018-12-10 05:06] LABS: ABG Base Excess 6 mEq/L (-2 to 3); ABG HCO3 40 mEq/L (21-27); ABG Oxygen Saturation 96 % (95-98); ABG PCO2 127 mmHg (35-45); ABG PO2 116 mmHg (85-104); ABG TCO2 44 mEq/L (20-26)
[2018-12-10 05:20] LABS: BUN/Creatinine Ratio 47 (6-26); Blood Urea Nitrogen 33 mg/dL (8-23); Calcium 8.4 mg/dL (8.6-10.3); Carbon Dioxide 38 mEq/L (23-29); Chloride 89 mEq/L (98-107); Glucose 221 mg/dL (70-105); Osmolality,Calculated 286 (280-300); Potassium 5.1 mEq/L (3.5-5.1); Sodium 131 mEq/L (136-145); eGFR For African Americans > 60 (> 60); eGFR For Non-African Americans > 60 (> 60)
--- NOTE | 2018-12-10 05:33 | Procedure Note ---
Date of procedure: 12/10/18 Pre-op diagnosis: acute respiratory failure with hypercapnia Post-op diagnosis: same Procedure: Date: 12/10/2018 Time: 5:15am Indication: Respiratory Distress Resident: Dr. Luna Delgado Attending: Dr. Carrasco A time-out was completed verifying correct patient, procedure, site, positioning, and special equipment if applicable. The patient was placed in a flat position. Sedation was obtained using Versed 7mg, and additionally with Etomidate 10mg. The patient was easily ventilated using an ambu bag. The MAC 3 BLADE was used and inserted into the oropharynx at which time there was a Grade 1 view of the vocal cords. A 7.5-belizean endotracheal tube was inserted and visualized going through the vocal cords. The stylette was removed. Colorimetric change was visualized on the CO2 meter. Breath sounds were heard in both lung venegas equally. The endotracheal tube was placed at 23 cm, measured at the teeth. Dr. Carrasco was present for the entire procedure. A chest x-ray was ordered to assess for pneumothorax and verify endotrachealtube placement. Estimated Blood Loss: 0cc The patient tolerated the procedure well and there were no complications. Anesthesia: IV sedation Was there an assistant printer floor covering present: No Estimated blood loss (cc): 0 Specimen: 0 Pathology: none sent Condition: critical Disposition: ICU
[2018-12-10] MEDS ORDERED: 0.9 % Sodium Chloride 250 ML ONE (05:58)
--- NOTE | 2018-12-10 05:58 | Event Note ---
Date of Encounter: 12/10/18 Time of Encounter: 04:23 Was called to the patient's bedside as she was tachycardic with heart rate and 130s, RR 30. On examination the patient she appeared in acute respiratory distress with accessory muscle use, her lung sounds were constricted and she was not moving much air. Nurse stated that she had been on BiPAP all evening except for most recently for 30 minutes due to patient refusing to wear it. The BiPAP was placed back on the patient however, the patient continued to become fatigued. IV steroids and triple dunebs were given. An ABG was obtained and the patient had a pH 7.10, pCO2 127, HCO3 40, pO2 116 demonstrating a respiratory acidosis. As the patient was growing more fatigued it was determined that she would likely need intubation and that she was transferred to the ICU. She was then intubated with respiratory therapy present. Chest x-ray and repeat ABG were ordered. A consult to pulmonology was placed for vent management.
[2018-12-10] MEDS ORDERED: Artificial Tears SOLN 15 ML BOTTLE BOTH EYES PRN (06:02)
[2018-12-10] MEDS: Pantoprazole 40 MG VIAL IVP SCH ×2 (06:33→18:15)
[2018-12-10 06:34] LABS: ABG Base Excess 13 mEq/L (-2 to 3); ABG HCO3 37 mEq/L (21-27); ABG Oxygen Saturation 100 % (95-98); ABG PCO2 47 mmHg (35-45); ABG PO2 479 mmHg (85-104); ABG TCO2 39 mEq/L (20-26); Blood Gas Modality AF; Blood Gas PEEP 5 cm H2O; Blood Gas VT 400 cc
--- NOTE | 2018-12-10 07:51 | Pulmonology Consult Note ---
<Conor Hurst - Last Filed: 12/10/18 12:08> Date of Encounter: 12/10/18 Time of Encounter: 07:43 Assessment and Plan (1) Anemia Current Visit: No Status: Chronic Hemoglobin is currently 10.2 up from 6.6 Continue to monitor with daily CBC Transfusions if necessary Qualifiers: Anemia type: other cause Other causes of anemia: other cause, not classified Qualified Code(s): D64.89 - Other specified anemias (2) Dependence on continuous supplemental oxygen Current Visit: No Status: Chronic (3) Frailty Current Visit: No Status: Chronic Consult made to palliative care Consulted nutrition for tube feeds (4) COPD (chronic obstructive pulmonary disease) Current Visit: Yes Status: Chronic Qualifiers: COPD type: COPD with acute exacerbation Qualified Code(s): J44.1 - Chronic obstructive pulmonary disease with (acute) exacerbation (5) Aortic stenosis Current Visit: No Status: Chronic Monitor strictly for signs of hypertension Minimal sedation/paralysis as needed. Qualifiers: Cardiac valve disease etiology: etiology unspecified Qualified Code(s): I35.0 - Nonrheumatic aortic (valve) stenosis (6) CHF (congestive heart failure) Current Visit: No Status: Acute Daily chest x-rays, BMP, cautious fluid replacement if necessary Continue Lasix BiPAP as needed If able to wean from ventilator Qualifiers: Heart failure type: diastolic Heart failure chronicity: acute on chronic Qualified Code(s): I50.33 - Acute on chronic diastolic (congestive) heart failure (7) Acute respiratory failure Current Visit: No Status: Acute See above Qualifiers: Qualified Code(s): J96.00 - Acute respiratory failure, unspecified whether with hypoxia or hypercapnia (8) DVT prophylaxis Current Visit: No Status: Acute Heparin 5000 units 3 times a day (9) Diabetes Current Visit: Yes Status: Acute Low-dose sliding scale insulin 3 times a day before meals History of Present Illness Consult date: 12/10/18 Requesting physician: Luna Delgado Reason for consult: other (Vent management status post intubation) Chief complaint: Acute respiratory failure, COPD, CHF, severe aortic stenosis History of present illness: Patient is a 73-year-old female with a past medical history of diastolic congestive heart failure with preserved ejection fraction, severe end-stage COPD, severe aortic stenosis, pulmonary hypertension and presented to the ED on December 08 due to 2 day history of gradually progressive and worsening dyspnea associated with a productive cough with mild sputum production that she is unable to characterize. The patient's grandson/caregiver stated that for the past several months patient has had declining cognitive function with increasing confusion. Upon hospital admission the patient was found to be anemic and received one unit of packed red blood cells at which time she became progressively worse with breathing without a change in her O2 sat. Patient was noted to have crackles at her lung bases in ABG yielded a respiratory acidosis. Patient was given Lasix and transferred to [address] [place] [address] and placed on BiPAP. Overnight resident physician Dr. Luna Key stated that she was called patient's bedside early this morning due to worsening respiratory function. The patient was noted to be lethargic and was unable to protect her own airway best decision was made for emergent intubation at that time which was accomplished without difficulty. Patient was placed on a ventilator and transferred to ICU for further evaluation and management. Upon my initial evaluation the patient is intubated and mechanically ventilated with a propofol drip to a Jeter scale of 3. The patient appears to be relatively hypotensive however given her body habitus I encouraged by her maintaining a map greater than 65. At this time I will discontinue the propofol drip and switched to fentanyl and Precedex in order to prevent further hypotensive issues. Patient was noted have wheezes in the left lung [place], I do not know crackles or rhonchi, evaluation of the chest x-ray showed the patient was right mainstem intubation by approximately 1 cm, respiratory therapy was contacted to withdraw this tube by that amount. Due to concerns of possible pneumonia we will monitor with daily chest x-rays, I will add a pro calcitonin and CRP at this time for further laboratory evaluation, I will place palliative care consult for evaluation and further goals of care planning. Patient is otherwise hemodynamically stable at this time. Past Med Surg Social Fam HX - Past Medical History Medical history: COPD, GERD, RA, valvular heart disease Additional medical history: chronic anemia-sees oncology for it Psychiatric history: no psych history, anxiety - Past Surgical History Surgical History: appendectomy, hysterectomy, other Additional surgical history: abd tumor removal 2003 - Social History Smoking Status: Former smoker Smokeless Tobacco Status: No Alcohol use: none Drug use: none - Family History Father Living Status: Hx Family Cancer: Yes Medications and Allergies Aspirin Enteric Coated [Aspirin EC] 81 mg PO DAILY #30 tablet. 03/30/18 [Rx] Folic Acid 1 mg PO DAILY 03/30/18 [History] Hydroxychloroquine Sulfate [Plaquenil] 200 mg PO DAILY 03/30/18 [History] Leflunomide 20 mg PO DAILY 03/30/18 [History] Omeprazole [PriLOSEC] 20 mg PO DAILY 03/30/18 [History] Tiotropium Br/Olodaterol HCl [Stiolto Respimat Inhal [place]] 2 puff IH DAILY 03/30/18 [History] LORazepam [Ativan] 0.5 mg PO Q12H PRN 04/22/18 [History] Naproxen Sodium [Aleve] 220 mg PO Q12-24H PRN 04/22/18 [History] Fluticasone Propionate [Flovent Hfa] 1 puff IH BID 07/16/18 [History] Furosemide [Lasix] 20 mg PO DAILY PRN #15 tablet 07/19/18 [Rx] Allergy/AdvReac Type Severity Reaction Status Date / Time Sulfa (Sulfonamide AdvReac See Verified 12/09/18 10:32 Antibiotics) Comments ROS unobtainable: due to endotracheal tube, due to mental status All Systems: The remainder of the systems were reviewed and are negative Physical Examination Vital Signs: Vital Signs, Last 4 Hours Temp Pulse Resp BP Pulse Ox 12/10/18 07:00 74 9 105/56 97 12/10/18 06:00 84 16 86/61 100 12/10/18 05:45 16 91/66 100 12/10/18 05:30 97.8 F 85 16 63/52 100 12/10/18 05:00 97.8 F 117 19 146/60 100 12/10/18 04:56 30 100 General appearance: no acute distress, comatose ENT: oropharynx moist Neck: supple Effort: other (Mechanically ventilated) Auscultation: left: wheezes Cardiovascular: regular rate and rhythm, murmur noted (Patient with history of severe aortic stenosis) Gastrointestinal: normoactive bowel sounds, soft, non-distended Integumentary: normal Extremities: no cyanosis Musculoskeletal: no deformities unable to assess due to mental status, other (Patient is sedated and mechanically ventilated) Ventilator Settings Ventilator Settings: Ventilator Settings, Last 8 Hours Ventilator Tidal Volume 400 Setting Ventilator Tidal Volume 400 Setting Ventilator Tidal Volume 400 Setting Ventilator Respiratory Rate 12 Setting Ventilator Respiratory Rate 16 Setting Ventilator Respiratory Rate 16 Setting Ventilator Respiratory Rate 16 Setting Ventilator Respiratory Rate 10 Setting Actual Respiratory Rate 16 Actual Respiratory Rate 16 Positive End Expiratory 5 Pressure Positive End Expiratory 5 Pressure Positive End Expiratory 5 Pressure Peak Inspiratory Airway 47 Pressure Peak Inspiratory Airway 40 Pressure Results - Laboratory Findings CBC and BMP: 12/10/18 04:49 12/10/18 04:49 ABG ABG pH 7.50 pH Units (7.32-7.45) H D 12/10/18 06:31 ABG pCO2 47 mmHg (35-45) H D 12/10/18 06:31 ABG pO2 479 mmHg (85-104) H D 12/10/18 06:31 ABG O2 Saturation 100 % (95-98) H 12/10/18 06:31 Abnormal lab findings: Abnormal lab results WBC 4.0 K/mcL (4.3-11.1) L 12/09/18 02:02 RBC 5.01 M/mcL (3.82-4.97) H 12/10/18 04:49 Hgb 10.2 g/dL (11.5-15.4) L 12/10/18 04:49 Hct 33.4 % (35.3-44.9) L 12/09/18 14:57 MCV 73.1 fL (83.0-100.0) L 12/10/18 04:49 MCH 20.4 pg (28.0-33.3) L 12/10/18 04:49 MCHC 27.9 g/dL (31.6-35.5) L 12/10/18 04:49 RDW 27.0 % (11.5-14.5) H 12/10/18 04:49 Plt Count 102 K/mcL (140-400) L 12/09/18 02:02 Lymphocytes # 0.2 K/mcL (0.6-4.6) L 12/09/18 02:02 Nucleated RBCs/100 WBC 0.5 /100 WBC (0) H 12/09/18 02:02 Platelet Estimate Slight Decrease (Normal) L 12/09/18 02:02 Hypochromasia Present (Not Present) A 12/09/18 02:02 Poikilocytosis 1+ (Not Present) A 12/09/18 02:02 Anisocytosis 2+ (Not Present) A 12/09/18 02:02 Microcytosis Present (Not Present) A 12/09/18 02:02 Target Cells 1+ (Not Present) A 12/09/18 02:02 Tear Drop Cells 1+ (Not Present) A 12/09/18 02:02 ABG pH 7.50 pH Units (7.32-7.45) H D 12/10/18 06:31 ABG pCO2 47 mmHg (35-45) H D 12/10/18 06:31 ABG pO2 479 mmHg (85-104) H D 12/10/18 06:31 ABG HCO3 37 mEq/L (21-27) H 12/10/18 06:31 ABG Total CO2 39 mEq/L (20-26) H 12/10/18 06:31 ABG O2 Saturation 100 % (95-98) H 12/10/18 06:31 ABG Base Excess 13 mEq/L (-2 to 3) H 12/10/18 06:31 Sodium 131 mEq/L (136-145) L 12/10/18 04:49 Chloride 89 mEq/L (98-107) L 12/10/18 04:49 Carbon Dioxide 38 mEq/L (23-29) H 12/10/18 04:49 BUN 33 mg/dL (8-23) H 12/10/18 04:49 Est GFR (Non-Af Amer) 59 (> 60) L 12/09/18 02:02 BUN/Creatinine Ratio 47 (6-26) H 12/10/18 04:49 Glucose 221 mg/dL (70-105) H 12/10/18 04:49 Calculated Osmolality 276 (280-300) L 12/08/18 10:50 Calcium 8.4 mg/dL (8.6-10.3) L 12/10/18 04:49 Iron 40 mcg/dL (50-170) L 12/09/18 02:02 Transferrin 106 mg/dL (203-362) L 12/09/18 02:02 B-Natriuretic Peptide 493 pg/mL (Less than 100) H 12/08/18 10:49 Urine Protein 30 mg/dL (Neg-Trace) H 12/09/18 15:45 Urine Blood Trace (Negative) H 12/09/18 15:45 Crossmatch See Detail 12/09/18 06:48 - Microbiology Findings Microbiology Findings: Microbiology, Last 48 Hours 12/08/18 10:50 Blood Culture - Preliminary Peripheral Venipuncture Culture is incubating and being continuously monitored for growth. Final report to follow. 12/08/18 10:48 Blood Culture - Preliminary Peripheral Venipuncture Culture is incubating and being continuously monitored for growth. Final report to follow. - Clinical Findings Intake & Output: Intake & Output 12/09/18 12/09/18 12/10/18 15:59 23:59 07:59 Intake Total 900 / 2380 480 / 2380 Output Total 300 / 300 500 / 500 Balance 900 / 2080 180 / 2080 -500 / -500 Weight 29.6 kg Consult Discharge Plan - Plan Referrals: Jacqueline Hilton DO [Primary Care Provider] - <Nabor Izaguirre - Last Filed: 12/10/18 16:11> Date of Encounter: 12/10/18 All Systems: The remainder of the systems were reviewed and are negative Physical Examination Vital Signs: Vital Signs, Last 4 Hours Pulse Resp BP Pulse Ox 12/10/18 15:43 10 100 12/10/18 15:00 77 10 104/69 100 12/10/18 14:00 71 10 106/57 100 12/10/18 13:00 71 10 110/57 100 Ventilator Settings Ventilator Settings: Ventilator Settings, Last 8 Hours Ventilator Tidal Volume 350 Setting Ventilator Tidal Volume 350 Setting Ventilator Tidal Volume 350 Setting Ventilator Tidal Volume 350 Setting Ventilator Tidal Volume 350 Setting Ventilator Tidal Volume 350 Setting Ventilator Tidal Volume 350 Setting Ventilator Tidal Volume 350 Setting Ventilator Tidal Volume 350 Setting Ventilator Tidal Volume 350 Setting Ventilator Respiratory Rate 10 Setting Ventilator Respiratory Rate 10 Setting Ventilator Respiratory Rate 10 Setting Ventilator Respiratory Rate 10 Setting Ventilator Respiratory Rate 10 Setting Ventilator Respiratory Rate 9 Setting Ventilator Respiratory Rate 9 Setting Ventilator Respiratory Rate 9 Setting Ventilator Respiratory Rate 9 Setting Ventilator Respiratory Rate 9 Setting Actual Respiratory Rate 10 Actual Respiratory Rate 10 Actual Respiratory Rate 10 Actual Respiratory Rate 9 Actual Respiratory Rate 9 Actual Respiratory Rate 9 Actual Respiratory Rate 9 Actual Respiratory Rate 9 Positive End Expiratory 5 Pressure Positive End Expiratory 0 Pressure Positive End Expiratory 0 Pressure Positive End Expiratory 0 Pressure Positive End Expiratory 0 Pressure Positive End Expiratory 0 Pressure Positive End Expiratory 0 Pressure Positive End Expiratory 0 Pressure Positive End Expiratory 5 Pressure Positive End Expiratory 0 Pressure Peak Inspiratory Airway 26 Pressure Peak Inspiratory Airway 30 Pressure Peak Inspiratory Airway 30 Pressure Peak Inspiratory Airway 24 Pressure Peak Inspiratory Airway 24 Pressure Peak Inspiratory Airway 25 Pressure Peak Inspiratory Airway 27 Pressure Peak Inspiratory Airway 25 Pressure Peak Inspiratory Airway 28 Pressure Peak Inspiratory Airway 24 Pressure Results - Laboratory Findings CBC and BMP: 12/10/18 04:49 12/10/18 04:49 ABG ABG pH 7.43 pH Units (7.32-7.45) 12/10/18 11:42 ABG pCO2 57 mmHg (35-45) H 12/10/18 11:42 ABG pO2 77 mmHg (85-104) L D 12/10/18 11:42 ABG O2 Saturation 95 % (95-98) 12/10/18 11:42 Abnormal lab findings: Abnormal lab results WBC 4.0 K/mcL (4.3-11.1) L 12/09/18 02:02 RBC 5.01 M/mcL (3.82-4.97) H 12/10/18 04:49 Hgb 10.2 g/dL (11.5-15.4) L 12/10/18 04:49 Hct 33.4 % (35.3-44.9) L 12/09/18 14:57 MCV 73.1 fL (83.0-100.0) L 12/10/18 04:49 MCH 20.4 pg (28.0-33.3) L 12/10/18 04:49 MCHC 27.9 g/dL (31.6-35.5) L 12/10/18 04:49 RDW 27.0 % (11.5-14.5) H 12/10/18 04:49 Plt Count 102 K/mcL (140-400) L 12/09/18 02:02 Lymphocytes # 0.2 K/mcL (0.6-4.6) L 12/09/18 02:02 Nucleated RBCs/100 WBC 0.5 /100 WBC (0) H 12/09/18 02:02 Platelet Estimate Slight Decrease (Normal) L 12/09/18 02:02 Hypochromasia Present (Not Present) A 12/09/18 02:02 Poikilocytosis 1+ (Not Present) A 12/09/18 02:02 Anisocytosis 2+ (Not Present) A 12/09/18 02:02 Microcytosis Present (Not Present) A 12/09/18 02:02 Target Cells 1+ (Not Present) A 12/09/18 02:02 Tear Drop Cells 1+ (Not Present) A 12/09/18 02:02 ABG pH 7.50 pH Units (7.32-7.45) H D 12/10/18 06:31 ABG pCO2 57 mmHg (35-45) H 12/10/18 11:42 ABG pO2 77 mmHg (85-104) L D 12/10/18 11:42 ABG HCO3 37 mEq/L (21-27) H 12/10/18 11:42 ABG Total CO2 39 mEq/L (20-26) H 12/10/18 11:42 ABG O2 Saturation 100 % (95-98) H 12/10/18 06:31 ABG Base Excess 11 mEq/L (-2 to 3) H 12/10/18 11:42 Sodium 131 mEq/L (136-145) L 12/10/18 04:49 Chloride 89 mEq/L (98-107) L 12/10/18 04:49 Carbon Dioxide 38 mEq/L (23-29) H 12/10/18 04:49 BUN 33 mg/dL (8-23) H 12/10/18 04:49 Est GFR (Non-Af Amer) 59 (> 60) L 12/09/18 02:02 BUN/Creatinine Ratio 47 (6-26) H 12/10/18 04:49 Glucose 221 mg/dL (70-105) H 12/10/18 04:49 Calculated Osmolality 276 (280-300) L 12/08/18 10:50 Calcium 8.4 mg/dL (8.6-10.3) L 12/10/18 04:49 Iron 40 mcg/dL (50-170) L 12/09/18 02:02 Transferrin 106 mg/dL (203-362) L 12/09/18 02:02 B-Natriuretic Peptide 493 pg/mL (Less than 100) H 12/08/18 10:49 Urine Protein 30 mg/dL (Neg-Trace) H 12/09/18 15:45 Urine Blood Trace (Negative) H 12/09/18 15:45 Crossmatch See Detail 12/09/18 06:48 - Clinical Findings Intake & Output: Intake & Output 12/10/18 12/10/18 12/10/18 07:59 15:59 23:59 Intake Total 58.5 / 58.5 Output Total 500 / 850 350 / 850 Balance -500 / -791.5 -291.5 / -791.5 Weight 29.6 kg - Attending Attestation I examined this patient and my medical decision-making was reviewed with the Resident Physician. I agree with the documented findings, disposition and treatment plan as described except to the extent set forth below. We independently had [id number] contact with the patient I spent 40min of Critical Care time with this patient. It involved decision making of high complexity to assess, manipulate, and support vital organ system failure and/or to prevent further life threatening deterioration of the patient's condition. The time involved in the performance of separately report able procedures was not counted toward critical care time. Patient seen and examined at bedside Labs, radiology, chart personally reviewed. Management was reviewed during multidisciplinary critical care rounds. FARE ENFORCEMENT OFFICER: She is encephalopathic and sedated now on the vent will continue daily sedation holiday Pulm: Acute on chronic hypoxic hypercapnic respiratory failure secondary to COPD exacerbation presented with respiratory failure and acidosis as a result but now has actually respiratory alkalosis from overventilation I have adjusted her ventilator to improve her peak inspiratory pressures and increased her JANAK with ratio. Also continue treatment for COPD exacerbation and will assess for candidacy of spontaneous breathing trial although at this time she is not a candidate. Cards: She has a tachycardia and diastolic heart failure also with pulmonary hypertension and severe aortic stenosis will need to maintain cardiac perfusion gradient and she is at high risk for cardiopulmonary/hemodynamic collapse because of the severity of her aortic stenosis May need vasopressor support. Currently blood pressures monitored and stable would avoid overdiuresis GI: Stress ulcer prophylaxis given Nutrition: Nothing by mouth for now Renal: UOP Monitored, Cont to Trend sCr and monitor Electrolytes. ID: No clear evidence of infection we will continue to monitor this closely Heme/Onc: DVT prophylaxis given Endo: Glucose Monitored Integ/MSK: Skin Care per routine ICU Nursing Protocol to prevent ulcers. Lines: All lines examined without evidence of infection : Dispo: Monitor in ICU for critical illness CODE: DNAR - patient will need palliative care consultation overall prognosis guarded to poor given severity of her cardiac disease and respiratory failure
[2018-12-10] MEDS: FentaNYL (PF) 1,000 MCG in 0.9 % Sodium Chloride 80 ML IVC SCH (07:55)
[2018-12-10] MEDS: Artificial Tears SOLN 15 ML BOTTLE BOTH EYES SCH ×5 (07:56→23:25)
[2018-12-10] MEDS: Dexmedetomidine HCl 400 MCG/100 ML MLS IVC SCH (08:08)
[2018-12-10] MEDS: Folic Acid 1 MG TABLET PO SCH (09:33)
[2018-12-10] MEDS: Chlorhexidine Rinse 15 ML MOUTHWASH MM SCH ×2 (09:33→19:58)
[2018-12-10] MEDS ORDERED: *HR* Dextrose 50 % in Water (Syg) 50 ML SYRINGE IVP PRN (10:36)
[2018-12-10] MEDS ORDERED: Dextrose Gel 15 GM/37.5 ML TUBE PO PRN ×2 (10:36)
[2018-12-10] MEDS ORDERED: D5% in Water 1,000 ML IVC PRN (10:36)
[2018-12-10] MEDS: Insulin LISPRO 300 UNITS/3 ML VIAL SQ SCH ×2 (11:27→16:12)
[2018-12-10 11:45] LABS: ABG Base Excess 11 mEq/L (-2 to 3); ABG HCO3 37 mEq/L (21-27); ABG Oxygen Saturation 95 % (95-98); ABG PCO2 57 mmHg (35-45); ABG PH 7.43 pH Units (7.32-7.45); ABG PO2 77 mmHg (85-104); ABG TCO2 39 mEq/L (20-26); Blood Gas Modality ASSIST CONTROL; Blood Gas PEEP 5 cm H2O; Blood Gas VT 350 cc
[2018-12-10] MEDS ORDERED: *HR* LORazepam 2 MG/ML VIAL IVP ONE (11:52)
--- NOTE | 2018-12-10 12:35 | Palliative - Consult Note ---
Date of Encounter: 12/10/18 Time of Encounter: 12:33 - Assessment and Plan (1) Goals of care, counseling/discussion Current Visit: Yes Status: Acute Assessment and plan: Pt currently does not have capacity to make complex medical decisions. Pt's son Jarvis (lives in [place]) is LNOK and therefore the surrogate decision-maker. No a dvanced directives are known to be in place. Palliative placed phone call to Jarvis today to update him on pt's current clinical condition. Voicemail - Left message with my contact information. Pt currently lives with close friend/caregiver Ezra. Spoke with Ezra over the phone today to obtain f urther information. Ezra states that he has been with patient the last 3-4 years, that she took him in when he was 16. He states that she was not in good living situation, and with son Jarvis's permission, moved her in with him here in [place]. She has PP 20 hours per week through [place], home oxygen, w/c, walker. Jere states that until last August or so, patient was fairly independent, however, over the summer has been confined to her bed and he has been taking meals into her room. States she has been eating less and getting more confused. States that son has not contacted her in about 1.5 years, but later stated it was about 3 years. He did speak with pt son yesterday and he is aware she is here. We will continue to attempt to reach son and follow patient's clinical course. (2) Generalized pain Current Visit: Yes Status: Acute Assessment and plan: Pt intubated and sedated. Appears comfortable, currently on Fentanyl gtt for sedation per primary team. (3) Agitation Current Visit: Yes Status: Acute Assessment and plan: Management per primary team. Pt currently on Propofol, Fentanyl and Precedex gtt for sedation/agitation. (4) Palliative care encounter Current Visit: Yes Status: Acute (5) Aortic stenosis Current Visit: No Status: Chronic Assessment and plan: Last EF 60% severe and PAH. Follows with Dr. Bell (Cardiology) and Dr. Izaguirre (Pulmonary) Per last cardiology note, pt was referred to [facility] for TAVR but not candidate. Qualifiers: Cardiac valve disease etiology: etiology unspecified Qualified Code(s): I35.0 - Nonrheumatic aortic (valve) stenosis (6) COPD (chronic obstructive pulmonary disease) Current Visit: Yes Status: Chronic Qualifiers: COPD type: COPD with acute exacerbation Qualified Code(s): J44.1 - Chronic obstructive pulmonary disease with (acute) exacerbation Palliative-CN HPI - Data of Consult Consult date: 12/10/18 Requesting Physician: Nilesh Alvarez MD Primary Care Provider: Moses Rehman - Consult Narrative Palliative Care/Comfort Measures: Palliative care Reason for consult: Goals of Care History of present illness: Ms. Castro is a 73 year old female with hx of severe , COPD, chronic anemia and pulmonary hypertension admitted with increased SOB. Admission c/b anemia, blood transfusion and respiratory distress ultimately resulting in intubation and ICU transfer where she is being treated for CHF and acute respiratory failure. Palliative Care is consulted to assist with goals of care. CC: Nilesh Alvarez MD - Time Spent with Patient Time: Total time spent is greater than 50% in coordination of care (as documented) at patient's floor/unit and/or counseling patient: Time with patient: 45 minutes Past Med Surg Social Fam HX - Past Medical History Medical history: COPD, GERD, RA, valvular heart disease Additional medical history: chronic anemia-follows with hematology Psychiatric history: no psych history, anxiety - Past Surgical History Surgical History: appendectomy, hysterectomy Additional surgical history: abd tumor removal 2003 - Social History Smoking Status: Former smoker Smokeless Tobacco Status: No Alcohol use: none Drug use: none - Family History Father Living Status: Hx Family Cancer: Yes Medications and Allergies Aspirin Enteric Coated [Aspirin EC] 81 mg PO DAILY #30 tablet. 03/30/18 [Rx] Folic Acid 1 mg PO DAILY 03/30/18 [History] Hydroxychloroquine Sulfate [Plaquenil] 200 mg PO DAILY 03/30/18 [History] Leflunomide 20 mg PO DAILY 03/30/18 [History] Omeprazole [PriLOSEC] 20 mg PO DAILY 03/30/18 [History] Tiotropium Br/Olodaterol HCl [Stiolto Respimat Inhal [place]] 2 puff IH DAILY 03/30/18 [History] LORazepam [Ativan] 0.5 mg PO Q12H PRN 04/22/18 [History] Naproxen Sodium [Aleve] 220 mg PO Q12-24H PRN 04/22/18 [History] Fluticasone Propionate [Flovent Hfa] 1 puff IH BID 07/16/18 [History] Furosemide [Lasix] 20 mg PO DAILY PRN #15 tablet 07/19/18 [Rx] Allergy/AdvReac Type Severity Reaction Status Date / Time Sulfa (Sulfonamide AdvReac See Verified 12/09/18 10:32 Antibiotics) Comments ROS unobtainable: due to endotracheal tube Palliative Care-Exam - Constitutional Vitals: Temp Pulse Resp BP Pulse Ox 96.7 F L 82 10 95/49 100 12/10/18 12:03 12/10/18 12:00 12/10/18 12:00 12/10/18 12:00 12/10/18 12:00 - Other Additional findings: CONSTITUTIONAL/GENERAL: ill-appearing, intubated, sedated, minimally responsive on exam. EYES: Pupils intact, reactive and symmetric. Ear/Nose/Mouth/Throat (EMNT): Patent, dry mucous membranes. ET tube present, OG present. CARDIOVASCULAR: Tachycardia noted. Systolic murmur. No edema RESPIRATORY: on ventilator, Peep 0, TV 350, 30% Fi02. Breathing unlabored. GASTROINTESTINAL: Soft, non-distended, OG present. GENITOURINARY: Gee catheter. MUSCULOSKELETAL: No clubbing/cyanosis/ischemia. No deformities. INTEGUMENTARY: No rashes or lesions noted. NEUROLOGIC: Unable to assess d/t clinical condition- sedated. PSYCHIATRY: Unable to assess d/t clinical condition-sedated. Internal Medicine - CN: Reslt - Labs CBC & Chem 7: 12/10/18 04:49 12/10/18 04:49 Labs: Short CBC 12/09/18 12/10/18 Range/Units 14:57 04:49 WBC 10.9 D (4.3-11.1) K/mcL Hgb 9.4 L D 10.2 L (11.5-15.4) g/dL Hct 33.4 L 36.6 (35.3-44.9) % Plt Count 191 D (140-400) K/mcL BMP 12/10/18 04:49 Sodium 131 L Potassium 5.1 Chloride 89 L Carbon Dioxide 38 H BUN 33 H Creatinine 0.70 Glucose 221 H Calcium 8.4 L Urine 12/09/18 Range/Units 15:45 Urine Color Yellow (Yellow) Urine Clarity Clear (Clear) Urine pH 6.0 (5.0-8.0) pH Units Ur Specific [place] 1.011 (1.010-1.025) Urine Protein 30 H (Neg-Trace) mg/dL Urine Glucose (UA) Normal (Normal) mg/dL - ABG Interpretation ABG results: ABG ABG pH 7.43 pH Units (7.32-7.45) 12/10/18 11:42 ABG pCO2 57 mmHg (35-45) H 12/10/18 11:42 ABG pO2 77 mmHg (85-104) L D 12/10/18 11:42 ABG O2 Saturation 95 % (95-98) 12/10/18 11:42 - Impressions Impressions Chest X-Ray 12/10/18 04:34 IMPRESSION: 1. Status post endotracheal tube placement with tip in the proximal right mainstem bronchus, recommend retraction of approximately 4 cm. Satisfactory enteric tube placement. 2. Stable appearing chest findings described. Critical results were called by Dr. Lm Higgins MD to Luna Delgado on 12/10/2018 at 6:58 a.m.. D/ / Lm Higgins MD / Lm Higgins MD Interpreting Provider: Lm Higgins MD Chest X-Ray 12/10/18 08:06 IMPRESSION: Endotracheal tube appears slightly retracted as compared to chest x-ray earlier today but still appears to be low lying with tip 6 mm from the indira. Suggest retraction by 2 cm. Enteric tube redemonstrated with tip in the proximal body of the stomach and side-port likely at or just distal to the gastroesophageal junction. Consider advancement by 5 cm. Stable appearance to the heart and lungs with small bilateral pleural effusions along with COPD changes. D/ / 12/10/2018 08:52:06 Reji Rodrigez MD / maricarmen Interpreting Provider: Reji Rodrigez MD Consult Discharge Plan - Plan Referrals: Jacqueline Hilton, [Primary Care Provider] - Palliative Quality Palliative Quality: Screen for Code Status: NA (Pt intubated, phonecall placed to pt's son (LNOK).), Screen for Goals of Care: No, Screen for Pain: Yes, If Pain Regimen Started, Initiate Bowel Regimen: NA, Screen for Nausea/Vomitting: NA Code Status: 12/08/18 13:21 Resuscitation Status: Active [RES] Routine Comment: Resuscitation Status: Full Code
[2018-12-10] MEDS ORDERED: *HR* Midazolam HCl 2 MG/2 ML VIAL IV ONE (12:41)
[2018-12-10] MEDS ORDERED: *HR* Midazolam HCl 5 MG/5 ML VIAL IVP ONE (12:41)
[2018-12-10] MEDS ORDERED: *HR* Etomidate 20 MG/10 ML AMPUL IVP ONE (12:41)
[2018-12-10] MEDS: *HR* Heparin 5,000 UNIT/ML VIAL SQ SCH ×2 (13:25→21:21)
--- NOTE | 2018-12-10 16:00 | Event Note ---
Date of Encounter: 12/10/18 Time of Encounter: 14:50 Patient's son Jarvis Aden ([id number]) returned my call. Jarvis states that his mother (Alcira) gave him up at and he only discovered who she was 4-5 yrs ago. States that she did come to [place] to meet with him and they have limited contact. Discussed her clinical status and multiple medical problems. Jarvis did state that he does desire to make medical decisions for her. He states that him and the patient's caregiver Jere, do keep in touch and communicate occasionally. He does trust that Jere has her best interest at [facility] and desires for Jere to decide which ECF locally to admit her to following discharge, as they have discussed it is not safe for her to be alone. Code status discussed at length, Jarvis did transition patient to DNRCC-Arrest. At this time, if she were extubated, he desires reintubation if she has further respiratory decline. He plans to attempt to arrange to visit here in the near future, but cannot give any definite information r/t his work. I discussed that if she is re-intubated, with her poor respiratory reserve, we would likely need to rediscuss. Jarvis did state that he works 11 hour days and cannot have his phone, however, he does check his messages about every 3 hours. Updated ICU primary nurse Makayla regarding conversation and change in code status.
[2018-12-11] MEDS: Artificial Tears SOLN 15 ML BOTTLE BOTH EYES SCH ×2 (03:43→08:50)
[2018-12-11] MEDS: Ipratropium/Albuterol Neb 3 ML IH SCH ×7 (03:57→23:58)
[2018-12-11] MEDS: Pantoprazole 40 MG VIAL IVP SCH ×2 (05:02→18:01)
[2018-12-11] MEDS: *HR* Heparin 5,000 UNIT/ML VIAL SQ SCH ×3 (05:02→21:17)
[2018-12-11] MEDS: MethylPREDNISolone 40 MG/ML VIAL IVP SCH ×3 (05:02→21:16)
[2018-12-11 05:04] LABS: Basophils % 0.1 %; Immature Granulocytes % 0.5 % (0-4)
[2018-12-11 05:05] LABS: Hematocrit 31.5 % (35.3-44.9); Lymphocytes # 0.1 K/mcL (0.6-4.6); Lymphocytes % 0.7 %; Mean Corpuscular HGB Conc 28.6 g/dL (31.6-35.5); Mean Corpuscular Hemoglobin 20.2 pg (28.0-33.3); Mean Corpuscular Volume 70.6 fL (83.0-100.0); Monocytes # 0.6 K/mcL (0.0-1.3); Neutrophils # 15.1 K/mcL (1.6-8.9); Platelet Count 132 K/mcL (140-400); Red Blood Count 4.46 M/mcL (3.82-4.97); Red Cell Distribution Width 28.1 % (11.5-14.5); Segmented Neutrophils % 94.7 %; White Blood Count 15.9 K/mcL (4.3-11.1)
[2018-12-11 05:21] LABS: Alanine Aminotransferase 14 Units/L (7-52); Albumin 3.6 g/dL (3.5-5.7); Albumin/Globulin Ratio 1.8 (1.1-2.2); Alkaline Phosphatase 50 Units/L (34-104); Aspartate Amino Transferase 22 Units/L (13-39); BUN/Creatinine Ratio 50 (6-26); Bilirubin,Total 0.5 mg/dL (0.3-1.0); Blood Urea Nitrogen 38 mg/dL (8-23); Calcium 8.8 mg/dL (8.6-10.3); Carbon Dioxide 38 mEq/L (23-29); Chloride 92 mEq/L (98-107); Glucose 128 mg/dL (70-105); Osmolality,Calculated 291 (280-300); Sodium 135 mEq/L (136-145); Total Protein 5.6 g/dL (6.4-8.9); eGFR For African Americans > 60 (> 60); eGFR For Non-African Americans > 60 (> 60)
[2018-12-11 05:53] LABS: Anisocytosis 3+ (Not Present); Hypochromasia Present (Not Present); Platelet Estimate Slight Decrease (Normal); Polychromasia 2+ (Not Present)
[2018-12-11 05:54] LABS: Microcytosis Present (Not Present)
--- NOTE | 2018-12-11 08:14 | Pulmonology Progress Note ---
Date of Encounter: 12/11/18 Time of Encounter: 08:14 Assessment and Plan (1) Acute on chronic respiratory failure with hypoxia and hypercapnia Current Visit: Yes Status: Acute This is improving she has been weaned to nasal cannula is secondary to COPD ex acerbation complicated by her underlying cardiac valvular heart disease and pulmonary hypertension. Continue supplemental oxygen to keep saturation greater than 80% she will benefit from not getting out of bed to chair and PT O2 consultation (2) Acute exacerbation of chronic obstructive airways disease Current Visit: Yes Status: Acute We will continue IV steroids for today and can transition to by mouth prednisone with plan for two-week taper Cont scheduled bronchodilators Outpatient pulmonary follow-up - she is established in my clinic (3) Pulmonary HTN Current Visit: No Status: Chronic This is a combination of factors including valvular heart disease and severe COPD (4) Chronic diastolic heart failure Current Visit: Yes Status: Chronic Restart low-dose diuretic and will add beta isaura today (5) Aortic stenosis Current Visit: Yes Status: Acute She is at risk for wide pressure swings because of the severity of her underlying aortic stenosis and is reliant upon 90 cardiac perfusion gradient so would avoid any aggressive diuresis or tachycardia/tachyarrhythmias as possible Qualifiers: Cardiac valve disease etiology: etiology unspecified Qualified Code(s): I35.0 - Nonrheumatic aortic (valve) stenosis (6) Goals of care, counseling/discussion Current Visit: Yes Status: Acute DNAR Stable for transfer to the floor for ongoing care Objective PUL Vital signs: Last Vital Signs Temp 98.7 F 12/11/18 07:20 Pulse 113 12/11/18 07:00 Resp 22 12/11/18 07:00 BP 127/57 12/11/18 07:00 Pulse Ox 100 12/11/18 07:00 Results - Laboratory Findings CBC and BMP: 12/11/18 04:31 12/11/18 04:31 ABG ABG pH 7.43 pH Units (7.32-7.45) 12/10/18 11:42 ABG pCO2 57 mmHg (35-45) H 12/10/18 11:42 ABG pO2 77 mmHg (85-104) L D 12/10/18 11:42 ABG O2 Saturation 95 % (95-98) 12/10/18 11:42 Abnormal lab findings: Abnormal lab results WBC 15.9 K/mcL (4.3-11.1) H 12/11/18 04:31 RBC 5.01 M/mcL (3.82-4.97) H 12/10/18 04:49 Hgb 9.0 g/dL (11.5-15.4) L 12/11/18 04:31 Hct 31.5 % (35.3-44.9) L 12/11/18 04:31 MCV 70.6 fL (83.0-100.0) L 12/11/18 04:31 MCH 20.2 pg (28.0-33.3) L 12/11/18 04:31 MCHC 28.6 g/dL (31.6-35.5) L 12/11/18 04:31 RDW 28.1 % (11.5-14.5) H 12/11/18 04:31 Plt Count 132 K/mcL (140-400) L 12/11/18 04:31 Neutrophils # 15.1 K/mcL (1.6-8.9) H 12/11/18 04:31 Lymphocytes # 0.1 K/mcL (0.6-4.6) L 12/11/18 04:31 Nucleated RBCs/100 WBC 0.5 /100 WBC (0) H 12/09/18 02:02 Platelet Estimate Slight Decrease (Normal) L 12/11/18 04:31 Polychromasia 2+ (Not Present) A 12/11/18 04:31 Hypochromasia Present (Not Present) A 12/11/18 04:31 Poikilocytosis 1+ (Not Present) A 12/09/18 02:02 Anisocytosis 3+ (Not Present) A 12/11/18 04:31 Microcytosis Present (Not Present) A 12/11/18 04:31 Target Cells 1+ (Not Present) A 12/09/18 02:02 Tear Drop Cells 1+ (Not Present) A 12/09/18 02:02 ABG pH 7.50 pH Units (7.32-7.45) H D 12/10/18 06:31 ABG pCO2 57 mmHg (35-45) H 12/10/18 11:42 ABG pO2 77 mmHg (85-104) L D 12/10/18 11:42 ABG HCO3 37 mEq/L (21-27) H 12/10/18 11:42 ABG Total CO2 39 mEq/L (20-26) H 12/10/18 11:42 ABG O2 Saturation 100 % (95-98) H 12/10/18 06:31 ABG Base Excess 11 mEq/L (-2 to 3) H 12/10/18 11:42 Sodium 135 mEq/L (136-145) L 12/11/18 04:31 Chloride 92 mEq/L (98-107) L 12/11/18 04:31 Carbon Dioxide 38 mEq/L (23-29) H 12/11/18 04:31 BUN 38 mg/dL (8-23) H 12/11/18 04:31 Est GFR (Non-Af Amer) 59 (> 60) L 12/09/18 02:02 BUN/Creatinine Ratio 50 (6-26) H 12/11/18 04:31 Glucose 128 mg/dL (70-105) H 12/11/18 04:31 POC Glucose 134 mg/dL (70-99) H 12/10/18 19:58 Calculated Osmolality 276 (280-300) L 12/08/18 10:50 Calcium 8.4 mg/dL (8.6-10.3) L 12/10/18 04:49 Iron 40 mcg/dL (50-170) L 12/09/18 02:02 Transferrin 106 mg/dL (203-362) L 12/09/18 02:02 B-Natriuretic Peptide 493 pg/mL (Less than 100) H 12/08/18 10:49 Serum Total Protein 5.6 g/dL (6.4-8.9) L 12/11/18 04:31 Globulin 2.0 g/dL (2.4-3.5) L 12/11/18 04:31 Urine Protein 30 mg/dL (Neg-Trace) H 12/09/18 15:45 Urine Blood Trace (Negative) H 12/09/18 15:45 Crossmatch See Detail 12/09/18 06:48 - Clinical Findings Intake & Output: Intake & Output 12/10/18 12/11/18 12/11/18 23:59 07:59 15:59 Output Total 365 / 1215 325 / 325 Balance -365 / -1156.5 -325 / -325 Weight 29.7 kg Consult Discharge Plan - Plan Referrals: Jacqueline Hilton, [Primary Care Provider] -
[2018-12-11] MEDS: Chlorhexidine Rinse 15 ML MOUTHWASH MM SCH ×2 (08:47→21:16)
[2018-12-11] MEDS: Folic Acid 1 MG TABLET PO SCH (08:47)
[2018-12-11] MEDS: FentaNYL (PF) 1,000 MCG in 0.9 % Sodium Chloride 80 ML IVC SCH (08:48)
[2018-12-11] MEDS: Dexmedetomidine HCl 400 MCG/100 ML MLS IVC SCH (08:49)
[2018-12-11] MEDS: Insulin LISPRO 300 UNITS/3 ML VIAL SQ SCH ×3 (08:52→18:02)
[2018-12-11] MEDS ORDERED: Naloxone 0.4 MG/ML INJ IVP PRN (11:27)
[2018-12-11] MEDS ORDERED: FentaNYL (PF) 1,000 MCG in 0.9 % Sodium Chloride 80 ML IVC SCH (11:27)
[2018-12-11] MEDS ORDERED: Furosemide 20 MG TABLET PO PRN (11:27)
[2018-12-11] MEDS ORDERED: D5% in Water 1,000 ML IVC PRN (11:27)
[2018-12-11] MEDS ORDERED: Ondansetron 4 MG/2 ML VIAL IVP PRN (11:27)
[2018-12-11] MEDS ORDERED: Artificial Tears SOLN 15 ML BOTTLE BOTH EYES PRN (11:27)
[2018-12-11] MEDS ORDERED: *HR* Dextrose 50 % in Water (Syg) 50 ML SYRINGE IVP PRN (11:27)
[2018-12-11] MEDS ORDERED: Dexmedetomidine HCl 400 MCG/100 ML MLS IVC SCH (11:27)
[2018-12-11] MEDS ORDERED: Dextrose Gel 15 GM/37.5 ML TUBE PO PRN ×2 (11:27)
[2018-12-11] MEDS ORDERED: Artificial Tears SOLN 15 ML BOTTLE BOTH EYES SCH (12:00)
--- NOTE | 2018-12-11 23:58 | Electrocardiograph Report ---
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
--- NOTE | 2018-12-12 | Electrocardiograph Report ---
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
[2018-12-12] MEDS: Pantoprazole 40 MG VIAL IVP SCH ×2 (03:56→18:21)
[2018-12-12] MEDS: *HR* Heparin 5,000 UNIT/ML VIAL SQ SCH (03:56)
[2018-12-12] MEDS: MethylPREDNISolone 40 MG/ML VIAL IVP SCH ×3 (03:58→20:17)
[2018-12-12] MEDS: Ipratropium/Albuterol Neb 3 ML IH SCH ×6 (04:25→23:38)
[2018-12-12] MEDS: Folic Acid 1 MG TABLET PO SCH (08:53)
[2018-12-12] MEDS: Insulin LISPRO 300 UNITS/3 ML VIAL SQ SCH ×3 (08:54→17:00)
[2018-12-12] MEDS: Chlorhexidine Rinse 15 ML MOUTHWASH MM SCH ×2 (08:54→20:24)
[2018-12-12] MEDS ORDERED: Simethicone 80 MG TAB.CHEW PO PRN (09:41)
--- NOTE | 2018-12-12 09:42 | Internal Med Progress Note ---
Hospitalist Progress Note - Encounter Date of Encounter: 12/12/18 Time of Encounter: 07:15 - Subjective Interval History: Interim Hospital course reviewed. Patient was intubated and transferred to ICU on 12/10 due to worsening hypercarbic respiratory failure. Was successfully extubated shortly after and transferred to the floor today. She states that her breathing is slightly better, denies any chest pain or worsening cough - Exam Vitals: Temp Pulse Resp BP Pulse Ox 98.1 F 98 16 117/57 100 12/12/18 07:11 12/12/18 07:11 12/12/18 07:11 12/12/18 07:11 12/12/18 05:07 Exam: General: Alert and oriented, mild distress and pursed lip breathing noted. Cachectic Cardiovascular:Normal S1 & S2, No JVD. Pulse regular and normal rate Lungs: Diminished bilaterally with scattered wheezes Abdomen:Soft, non-tender, no rigidity. Extremities:No deformity or swelling Neurological:Normal cognition and motor skills. Non-focal - Assessment and Plan (1) Acute on chronic respiratory failure with hypoxia and hypercapnia Current Visit: Yes Status: Acute Assessment and Plan: Secondary to COPD exacerbation complicated by severe and pulmonary HTN no evidence of infiltrate on lung imaging Required ICU transfer after being intubated on 12/10. currently on steroid, bronchodilator, continue BiPAP PRN and HS poor prognosis, follow with palliative care (2) Acute exacerbation of chronic obstructive airways disease Current Visit: Yes Status: Acute Assessment and Plan: as above (3) Anemia Current Visit: No Status: Chronic Assessment and Plan: Hemoglobin during the admission was as low as 6.1. 1U pRBC and Hb increased to 10.2 -> 9 today prior EGD/colonoscopy in 2016 were both unremarkable FOBT +ve however in conjunction with severe , ?small bowel AVM nevertheless, patient is a poor candidate for any procedure even under conscious sedation will obtain GI's opinion PPI BID for now (4) Aortic stenosis Current Visit: No Status: Chronic Assessment and Plan: She was apparently deemed not a good candidate for TAVR cautious diuresis (5) Pulmonary HTN Current Visit: No Status: Chronic Assessment and Plan: Last echocardiogram 03/2018 showed severe pulmonary hypertension, Poor overall prognosis (6) Chronic diastolic heart failure Current Visit: Yes Status: Chronic Assessment and Plan: Not in decompensation, resume home dose of lasix (7) DVT prophylaxis Current Visit: No Status: Acute Assessment and Plan: EPCD - Time Spent with Patient Total time spent is greater than 50% in coordination of care (as documented) at patient's floor/unit and/or counseling patient: 25 - 35 minutes Plan of Care Discussed with: patient (discussed with GI) Internal Medicine: Result - Labs CBC & Chem 7: 12/11/18 04:31 12/11/18 04:31 - ABG Interpretation ABG results: ABG ABG pH 7.43 pH Units (7.32-7.45) 12/10/18 11:42 ABG pCO2 57 mmHg (35-45) H 12/10/18 11:42 ABG pO2 77 mmHg (85-104) L D 12/10/18 11:42 ABG O2 Saturation 95 % (95-98) 12/10/18 11:42 Consult Discharge Plan - Plan Referrals: Jacqueline Hilton DO [Primary Care Provider] - (3) Anemia Qualifiers: Anemia type: other cause Other causes of anemia: other cause, not classified Qualified Code(s): D64.89 - Other specified anemias (4) Aortic stenosis Qualifiers: Cardiac valve disease etiology: etiology unspecified Qualified Code(s): I35.0 - Nonrheumatic aortic (valve) stenosis
[2018-12-12 10:38] LABS: Basophils % 0.1 %; Mean Corpuscular HGB Conc 27.4 g/dL (31.6-35.5); Nucleated Red Blood Cells 0.2 /100 WBC (0); Segmented Neutrophils % 95.8 %
[2018-12-12 10:39] LABS: Hematocrit 32.1 % (35.3-44.9); Hemoglobin 8.8 g/dL (11.5-15.4); Immature Granulocytes % 0.3 % (0-4); Lymphocytes % 0.3 %; Mean Corpuscular Volume 72.8 fL (83.0-100.0); Monocytes # 0.4 K/mcL (0.0-1.3); Monocytes % 3.5 %; Platelet Count 183 K/mcL (140-400); Red Blood Count 4.41 M/mcL (3.82-4.97); White Blood Count 11.5 K/mcL (4.3-11.1)
[2018-12-12 10:57] LABS: Blood Urea Nitrogen 38 mg/dL (8-23); Calcium 8.8 mg/dL (8.6-10.3); Carbon Dioxide 39 mEq/L (23-29); Chloride 91 mEq/L (98-107); Glucose 154 mg/dL (70-105); Osmolality,Calculated 290 (280-300); Potassium 5.6 mEq/L (3.5-5.1); Sodium 134 mEq/L (136-145)
[2018-12-12 11:09] LABS: Hypochromasia Present (Not Present); Microcytosis Present (Not Present); Platelet Estimate Normal (Normal)
[2018-12-12 11:10] LABS: Anisocytosis 2+ (Not Present); Poikilocytosis 1+ (Not Present)
[2018-12-12 11:40] LABS: BUN/Creatinine Ratio 40 (6-26); eGFR For African Americans > 60 (> 60); eGFR For Non-African Americans 57 (> 60)
[2018-12-12] MEDS: *HR* LORazepam 2 MG/ML VIAL IVP PRN (20:12)
[2018-12-12] MEDS ORDERED: Ipratropium/Albuterol Neb 3 ML IH ONE (21:19)
[2018-12-12 21:38] LABS: ABG Base Excess 9 mEq/L (-2 to 3); ABG HCO3 42 mEq/L (21-27); ABG Oxygen Saturation 89 % (95-98); ABG PCO2 127 mmHg (35-45); ABG PH 7.13 pH Units (7.32-7.45); ABG PO2 79 mmHg (85-104); ABG TCO2 46 mEq/L (20-26); Blood Gas PEEP 8 cm H2O; Blood Gas VT 450 cc
[2018-12-12 22:52] LABS: ABG Base Excess 12 mEq/L (-2 to 3); ABG HCO3 43 mEq/L (21-27); ABG Oxygen Saturation 98 % (95-98); ABG PCO2 105 mmHg (35-45); ABG PH 7.22 pH Units (7.32-7.45); ABG PO2 132 mmHg (85-104); ABG TCO2 46 mEq/L (20-26); Blood Gas PEEP 8 cm H2O; Blood Gas VT 450 cc
--- NOTE | 2018-12-13 03:06 | Event Note ---
Date of Encounter: 12/12/18 Time of Encounter: 21:15 Rapid Response called at 21:15 on this pt. Went to pts. room and pt. was attempting to sit up in bed. SpO2 was in 60s. Patient was admitted on 12/08/1944 day history of worsening dyspnea with cough. Patient was hypoxic on arrival. Patient had similar respiratory distress on 12/10/18 at 04:23 which resulted in the pts. intubation and transfer to ICU. Patient was extubated later on 12/10/18. On arrival, pt. had just completed a 3 ml DuoNeb breathing treatment. Additional 6 ml DuoNeb ordered and administered. Last ABG was on and showed pH 7.43, PCO2 57, PO2 77, HCO3 37, total CO2 39, O2 saturation 95, base excess 11, positive Farhan test, inspired O2 30.0, tidal volume 350, PEEP 5. Patient placed on BiPAP and stat ABG was ordered which showed pH 7.13, PCO2 127, PO2 79, HCO3 42, total CO2 46, O2 saturation 89, base excess 9 on BiPAP with inspired O2 of 50.0 and tidal volume 450. PEEP 8. Patient also received 60 mg IVP methylprednisolone. Pts. CODE STATUS now DNRCCA. Bed Management called to secure an ICU bed for this patient. Patient transferred to ICU5. Patient to be monitored closely for possible intubation. 1V Portable CXR at 23:12 shows stable bibasilar consolidation and bilateral pleural effusion. Pneumonia is a consideration. Pulmonary sequela typical of what is seen with smoking, including probable COPD. Correlate with clinical history. Calcific atherosclerotic disease aorta.
[2018-12-13] MEDS: Ipratropium/Albuterol Neb 3 ML IH SCH ×5 (04:22→20:10)
[2018-12-13] MEDS: MethylPREDNISolone 40 MG/ML VIAL IVP SCH ×3 (05:06→20:00)
[2018-12-13] MEDS: Pantoprazole 40 MG VIAL IVP SCH ×2 (05:06→18:13)
[2018-12-13 05:42] LABS: ABG Base Excess 13 mEq/L (-2 to 3); ABG HCO3 42 mEq/L (21-27); ABG Oxygen Saturation 98 % (95-98); ABG PCO2 84 mmHg (35-45); ABG PH 7.31 pH Units (7.32-7.45); ABG PO2 127 mmHg (85-104); ABG TCO2 45 mEq/L (20-26); Blood Gas Modality AVAPS; Blood Gas PEEP 8 cm H2O; Blood Gas VT 450 cc
[2018-12-13 06:23] LABS: Basophils % 0.1 %; Lymphocytes % 0.6 %; Nucleated Red Blood Cells 0.3 /100 WBC (0)
[2018-12-13 06:24] LABS: Hematocrit 34.3 % (35.3-44.9); Hemoglobin 9.5 g/dL (11.5-15.4); Immature Granulocytes % 0.4 % (0-4); Lymphocytes # 0.1 K/mcL (0.6-4.6); Mean Corpuscular HGB Conc 27.7 g/dL (31.6-35.5); Mean Corpuscular Hemoglobin 20.2 pg (28.0-33.3); Monocytes # 0.7 K/mcL (0.0-1.3); Monocytes % 5.1 %; Neutrophils # 12.8 K/mcL (1.6-8.9); Platelet Count 166 K/mcL (140-400); Red Cell Distribution Width 29.2 % (11.5-14.5); Segmented Neutrophils % 93.8 %; White Blood Count 13.6 K/mcL (4.3-11.1)
[2018-12-13 06:44] LABS: BUN/Creatinine Ratio 39 (6-26); Blood Urea Nitrogen 31 mg/dL (8-23); Calcium 8.8 mg/dL (8.6-10.3); Carbon Dioxide 39 mEq/L (23-29); Chloride 90 mEq/L (98-107); Glucose 121 mg/dL (70-105); Osmolality,Calculated 292 (280-300); Potassium 4.6 mEq/L (3.5-5.1); Sodium 137 mEq/L (136-145); eGFR For African Americans > 60 (> 60); eGFR For Non-African Americans > 60 (> 60)
[2018-12-13 07:16] LABS: Anisocytosis 2+ (Not Present); Hypochromasia Present (Not Present); Stomatocytes 1+ (Not Present)
[2018-12-13 07:17] LABS: Microcytosis Present (Not Present); Platelet Estimate Normal (Normal); Poikilocytosis 1+ (Not Present)
--- NOTE | 2018-12-13 08:07 | Pulmonology Progress Note ---
<RyanneRohit moore M - Last Filed: 12/13/18 09:24> Date of Encounter: 12/13/18 Objective PUL Vital signs: Last Vital Signs Temp 97.6 F 12/13/18 07:16 Pulse 99 12/13/18 08:00 Resp 20 12/13/18 08:00 BP 167/70 12/13/18 08:00 Pulse Ox 98 12/13/18 08:00 Results - Laboratory Findings CBC and BMP: 12/13/18 05:49 12/13/18 05:49 ABG ABG pH 7.31 pH Units (7.32-7.45) L 12/13/18 05:35 ABG pCO2 84 mmHg (35-45) H* 12/13/18 05:35 ABG pO2 127 mmHg (85-104) H 12/13/18 05:35 ABG O2 Saturation 98 % (95-98) 12/13/18 05:35 Abnormal lab findings: Abnormal lab results WBC 13.6 K/mcL (4.3-11.1) H 12/13/18 05:49 RBC 5.01 M/mcL (3.82-4.97) H 12/10/18 04:49 Hgb 9.5 g/dL (11.5-15.4) L 12/13/18 05:49 Hct 34.3 % (35.3-44.9) L 12/13/18 05:49 MCV 73.0 fL (83.0-100.0) L 12/13/18 05:49 MCH 20.2 pg (28.0-33.3) L 12/13/18 05:49 MCHC 27.7 g/dL (31.6-35.5) L 12/13/18 05:49 RDW 29.2 % (11.5-14.5) H 12/13/18 05:49 Plt Count 132 K/mcL (140-400) L 12/11/18 04:31 Neutrophils # 12.8 K/mcL (1.6-8.9) H 12/13/18 05:49 Lymphocytes # 0.1 K/mcL (0.6-4.6) L 12/13/18 05:49 Nucleated RBCs/100 WBC 0.3 /100 WBC (0) H 12/13/18 05:49 Platelet Estimate Slight Decrease (Normal) L 12/11/18 04:31 Polychromasia 2+ (Not Present) A 12/11/18 04:31 Hypochromasia Present (Not Present) A 12/13/18 05:49 Poikilocytosis 1+ (Not Present) A 12/13/18 05:49 Anisocytosis 2+ (Not Present) A 12/13/18 05:49 Microcytosis Present (Not Present) A 12/13/18 05:49 Target Cells 1+ (Not Present) A 12/09/18 02:02 Tear Drop Cells 1+ (Not Present) A 12/09/18 02:02 Stomatocytes 1+ (Not Present) A 12/13/18 05:49 ABG pH 7.31 pH Units (7.32-7.45) L 12/13/18 05:35 ABG pCO2 84 mmHg (35-45) H* 12/13/18 05:35 ABG pO2 127 mmHg (85-104) H 12/13/18 05:35 ABG HCO3 42 mEq/L (21-27) H 12/13/18 05:35 ABG Total CO2 45 mEq/L (20-26) H 12/13/18 05:35 ABG O2 Saturation 89 % (95-98) L 12/12/18 21:30 ABG Base Excess 13 mEq/L (-2 to 3) H 12/13/18 05:35 Sodium 134 mEq/L (136-145) L 12/12/18 10:10 Potassium 5.6 mEq/L (3.5-5.1) H 12/12/18 10:10 Chloride 90 mEq/L (98-107) L 12/13/18 05:49 Carbon Dioxide 39 mEq/L (23-29) H 12/13/18 05:49 BUN 31 mg/dL (8-23) H 12/13/18 05:49 Est GFR (Non-Af Amer) 57 (> 60) L 12/12/18 10:10 BUN/Creatinine Ratio 39 (6-26) H 12/13/18 05:49 Glucose 121 mg/dL (70-105) H 12/13/18 05:49 POC Glucose 192 mg/dL (70-99) H 12/12/18 21:23 Calculated Osmolality 276 (280-300) L 12/08/18 10:50 Calcium 8.4 mg/dL (8.6-10.3) L 12/10/18 04:49 Iron 40 mcg/dL (50-170) L 12/09/18 02:02 Transferrin 106 mg/dL (203-362) L 12/09/18 02:02 C-Reactive Protein 26 mg/L (Less than 10) H 12/11/18 10:10 B-Natriuretic Peptide 493 pg/mL (Less than 100) H 12/08/18 10:49 Serum Total Protein 5.6 g/dL (6.4-8.9) L 12/11/18 04:31 Globulin 2.0 g/dL (2.4-3.5) L 12/11/18 04:31 Urine Protein 30 mg/dL (Neg-Trace) H 12/09/18 15:45 Urine Blood Trace (Negative) H 12/09/18 15:45 Stool Occult Blood Positive (Negative) A 12/11/18 10:00 Crossmatch See Detail 12/09/18 06:48 - Clinical Findings Intake & Output: Intake & Output 12/12/18 12/13/18 12/13/18 23:59 07:59 15:59 Intake Total 60 / 60 Output Total 200 / 200 Balance -200 / -140 60 / -140 Weight 29.4 kg Consult Discharge Plan - Plan Referrals: Jacqueline Hilton, [Primary Care Provider] - - Attending Attestation I examined this patient and my medical decision-making was reviewed with the Resident Physician. I agree with the documented findings, disposition and treatment plan as described except to the extent set forth below. Patient seen and examined. Labs, radiology, chart personally reviewed. Agree with resident's history and physical, assessment, plan with following comments: BARREL RAISER: Patient follows commands, Pulmonary: Acceptable oxygenation and ventilation on the noninvasive ventilation area currently she is on AVAP and she is getting reasonable tidal volume with treating care hypercapnia she will need daytime on off use of noninvasive ventilation and sleep with noninvasive ventilation will be important to keep her PCO2 under control. Continue bronchodilators and mobilization with incentive spirometry when she does not use her noninvasive ventilation would be important. Overall prognosis for this patient is very poor. Nutrition support is important as well. We will follow-up as needed and please call for any questions. If patient remains stable she can be transferred to the floor. <Conor Hurst - Last Filed: 12/13/18 11:25> Date of Encounter: 12/13/18 Time of Encounter: 10:28 Assessment and Plan (1) Anemia Current Visit: No Status: Chronic Qualifiers: Anemia type: other cause Other causes of anemia: other cause, not classified Qualified Code(s): D64.89 - Other specified anemias (2) Dependence on continuous supplemental oxygen Current Visit: No Status: Chronic (3) Frailty Current Visit: No Status: Chronic (4) COPD (chronic obstructive pulmonary disease) Current Visit: Yes Status: Chronic Qualifiers: COPD type: COPD with acute exacerbation Qualified Code(s): J44.1 - Chronic obstructive pulmonary disease with (acute) exacerbation (5) Aortic stenosis Current Visit: No Status: Chronic Qualifiers: Cardiac valve disease etiology: etiology unspecified Qualified Code(s): I3 5.0 - Nonrheumatic aortic (valve) stenosis (6) CHF (congestive heart failure) Current Visit: No Status: Acute Qualifiers: Heart failure type: diastolic Heart failure chronicity: acute on chronic Qualified Code(s): I50.33 - Acute on chronic diastolic (congestive) heart failure (7) Acute respiratory failure Current Visit: No Status: Acute Qualifiers: Qualified Code(s): J96.00 - Acute respiratory failure, unspecified whether with hypoxia or hypercapnia (8) DVT prophylaxis Current Visit: No Status: Acute (9) Diabetes Current Visit: Yes Status: Acute Qualifiers: Diabetes mellitus type: other specified (including SABINA) Diabetes mellitus terminal worker insulin use: unspecified terminal worker insulin use status Diabetes mellitus complication status: with other specified complication Qualified Code(s): E13.69 - Other specified diabetes mellitus with other specified complication Subjective Principal diagnosis: Respiratory failure Interval history: Patient is a 73-year-old female with a past medical history of diastolic congestive heart failure with preserved ejection fraction, severe end-stage COPD, severe aortic stenosis, pulmonary hypertension and presented to the ED on December 08 due to 2 day history of gradually progressive and worsening dyspnea associated with a productive cough with mild sputum production that she is unable to characterize. The patient's grandson/caregiver stated that for the past several months patient has had declining cognitive function with increasing confusion. Upon hospital admission the patient was found to be anemic and received one unit of packed red blood cells at which time she became progressively worse with breathing without a change in her O2 sat. Patient was noted to have crackles at her lung bases in ABG yielded a respiratory acidosis. Patient was given Lasix and transferred to [address] [place] [address] and placed on BiPAP. Overnight resident physician Dr. Luna Key stated that she was called patient's bedside early the morning of 12/10 due to worsening respiratory function. The patient was noted to be lethargic and was unable to protect her own airway best decision was made for emergent intubation at that time which was accomplished without difficulty. Patient was placed on a ventilator and transferred to ICU for further evaluation and management. During her ICU course the patient was successfully extubated and placed on BiPAP which was tolerated well. Patient was eventually discharged back to the floor from the ICU on 12/12. Consult was placed discussions regarding goals of care were established and patient's CODE STATUS was changed to DNR CC arrest. On the evening of December 12 rapid response was called at 2114 due to desaturation into the 60% range of SPO2 patient received DuoNeb nebs and was placed on BiPAP. An ABG showed respiratory acidosis the patient was transferred back into the ICU. Upon my initial examination this morning the patient is awake, alert, engaged conversation is able to answer questions appropriately. She is on BiPAP which she is tolerating well-although she says it is uncomfortable and she does not like wearing it. It was explained to patient that she will likely be BiPAP dependent at this point as she has had multiple episodes of desaturations when taking off her BiPAP. Patient verbalizes her understanding and agreement. Cardiopulmonary exam unremarkable, abdomen is soft nontender nondistended with good bowel sounds. Patient has no other concerns or complaints at this time. We will sign off on the care of this patient from a pulmonary/critical care standpoint at this time. Please reconsult us with any further concerns. The hospitalist medicine service will continue to watch this patient today in the ICU due to her respiratory fragility and we will reassess for transfer later today. Objective PUL Vital signs: Last Vital Signs Temp 97.6 F 12/13/18 07:16 Pulse 96 12/13/18 07:09 Resp 18 12/13/18 07:37 BP 156/63 12/13/18 07:37 Pulse Ox 97 12/13/18 07:37 General appearance: no acute distress, alert, appears uncomfortable Eyes: nonicteric ENT: oropharynx moist Neck: supple Effort: other (On BiPAP) Auscultation: bilateral: clear Cardiovascular: regular rate and rhythm Gastrointestinal: normoactive bowel sounds, soft, non-tender, non-distended Integumentary: normal Extremities: no cyanosis normal mental status, non-focal exam mood appropriate, affect normal Results - Laboratory Findings CBC and BMP: 12/13/18 05:49 12/13/18 05:49 ABG ABG pH 7.31 pH Units (7.32-7.45) L 12/13/18 05:35 ABG pCO2 84 mmHg (35-45) H* 12/13/18 05:35 ABG pO2 127 mmHg (85-104) H 12/13/18 05:35 ABG O2 Saturation 98 % (95-98) 12/13/18 05:35 Abnormal lab findings: Abnormal lab results WBC 13.6 K/mcL (4.3-11.1) H 12/13/18 05:49 RBC 5.01 M/mcL (3.82-4.97) H 12/10/18 04:49 Hgb 9.5 g/dL (11.5-15.4) L 12/13/18 05:49 Hct 34.3 % (35.3-44.9) L 12/13/18 05:49 MCV 73.0 fL (83.0-100.0) L 12/13/18 05:49 MCH 20.2 pg (28.0-33.3) L 12/13/18 05:49 MCHC 27.7 g/dL (31.6-35.5) L 12/13/18 05:49 RDW 29.2 % (11.5-14.5) H 12/13/18 05:49 Plt Count 132 K/mcL (140-400) L 12/11/18 04:31 Neutrophils # 12.8 K/mcL (1.6-8.9) H 12/13/18 05:49 Lymphocytes # 0.1 K/mcL (0.6-4.6) L 12/13/18 05:49 Nucleated RBCs/100 WBC 0.3 /100 WBC (0) H 12/13/18 05:49 Platelet Estimate Slight Decrease (Normal) L 12/11/18 04:31 Polychromasia 2+ (Not Present) A 12/11/18 04:31 Hypochromasia Present (Not Present) A 12/13/18 05:49 Poikilocytosis 1+ (Not Present) A 12/13/18 05:49 Anisocytosis 2+ (Not Present) A 12/13/18 05:49 Microcytosis Present (Not Present) A 12/13/18 05:49 Target Cells 1+ (Not Present) A 12/09/18 02:02 Tear Drop Cells 1+ (Not Present) A 12/09/18 02:02 Stomatocytes 1+ (Not Present) A 12/13/18 05:49 ABG pH 7.31 pH Units (7.32-7.45) L 12/13/18 05:35 ABG pCO2 84 mmHg (35-45) H* 12/13/18 05:35 ABG pO2 127 mmHg (85-104) H 12/13/18 05:35 ABG HCO3 42 mEq/L (21-27) H 12/13/18 05:35 ABG Total CO2 45 mEq/L (20-26) H 12/13/18 05:35 ABG O2 Saturation 89 % (95-98) L 12/12/18 21:30 ABG Base Excess 13 mEq/L (-2 to 3) H 12/13/18 05:35 Sodium 134 mEq/L (136-145) L 12/12/18 10:10 Potassium 5.6 mEq/L (3.5-5.1) H 12/12/18 10:10 Chloride 90 mEq/L (98-107) L 12/13/18 05:49 Carbon Dioxide 39 mEq/L (23-29) H 12/13/18 05:49 BUN 31 mg/dL (8-23) H 12/13/18 05:49 Est GFR (Non-Af Amer) 57 (> 60) L 12/12/18 10:10 BUN/Creatinine Ratio 39 (6-26) H 12/13/18 05:49 Glucose 121 mg/dL (70-105) H 12/13/18 05:49 POC Glucose 157 mg/dL (70-99) H 12/12/18 10:33 Calculated Osmolality 276 (280-300) L 12/08/18 10:50 Calcium 8.4 mg/dL (8.6-10.3) L 12/10/18 04:49 Iron 40 mcg/dL (50-170) L 12/09/18 02:02 Transferrin 106 mg/dL (203-362) L 12/09/18 02:02 C-Reactive Protein 26 mg/L (Less than 10) H 12/11/18 10:10 B-Natriuretic Peptide 493 pg/mL (Less than 100) H 12/08/18 10:49 Serum Total Protein 5.6 g/dL (6.4-8.9) L 12/11/18 04:31 Globulin 2.0 g/dL (2.4-3.5) L 12/11/18 04:31 Urine Protein 30 mg/dL (Neg-Trace) H 12/09/18 15:45 Urine Blood Trace (Negative) H 12/09/18 15:45 Stool Occult Blood Positive (Negative) A 12/11/18 10:00 Crossmatch See Detail 12/09/18 06:48 - Clinical Findings Intake & Output: Intake & Output 12/12/18 12/13/18 12/13/18 23:59 07:59 15:59 Output Total 200 / 200 Balance -200 / -200 Weight 29.4 kg
[2018-12-13] MEDS: Folic Acid 1 MG TABLET PO SCH (08:26)
[2018-12-13] MEDS: Chlorhexidine Rinse 15 ML MOUTHWASH MM SCH ×2 (08:26→20:01)
[2018-12-13] MEDS: Insulin LISPRO 300 UNITS/3 ML VIAL SQ SCH ×3 (08:26→18:15)
--- NOTE | 2018-12-13 10:00 | Internal Med Progress Note ---
Hospitalist Progress Note - Encounter Date of Encounter: 12/13/18 Time of Encounter: 07:45 - Subjective Interval History: Events of last night noted and reviewed. Patient required BiPap overnight and remained on BiPap through rounds this morning. Will try to wean off BiPap today and use it on a PRN basis throughout the day and then QHS at night. Care and plan discussed with Dr. Mercado and charge account clerk on rounds this morning. Awaiting further guidance from palliative care. - Exam Vitals: Temp Pulse Resp BP Pulse Ox 97.6 F 91 14 128/111 100 12/13/18 07:16 12/13/18 09:30 12/13/18 09:30 12/13/18 09:30 12/13/18 09:30 Exam: General: Cachectic; tolerating BiPap well; alert HEENT: BiPap in place; neck supple. Chest: Scattered wheezes throughout; diminished and distant breath sounds diffusely. CV: RRR; distant heart sounds Abdomen: soft, scaphoid; no HSMG. Ext: musle wasting; no edema; 1+ pulses Neuro: no focal deficits; A&O x 3. - Assessment and Plan (1) Acute on chronic respiratory failure with hypoxia and hypercapnia Current Visit: Yes Status: Acute Assessment and Plan: 1. Continued support with BiPap, nebs, and steroids. 2. Oxygen as needed; wean to maintain SPO2 > 88%. (2) Acute exacerbation of chronic obstructive airways disease Current Visit: Yes Status: Acute Assessment and Plan: 1. Continue BiPap PRN, steroids, aerosols, and nebs. 2. Wean above as tolerated while monitoring for any decompensation. (3) Pulmonary HTN Current Visit: Yes Status: Chronic Assessment and Plan: 1. Poor prognosis; discussed with Dr. Mercado and old records reviewed. 2. Palliative care team following. (4) Chronic diastolic heart failure Current Visit: Yes Status: Chronic Assessment and Plan: 1. NO acute process; monitor I/O and fluid balance. (5) Goals of care, counseling/discussion Current Visit: Yes Status: Acute Assessment and Plan: 1. Current code status is DNRCCA. 2. Palliative care team following. (6) Aortic stenosis Current Visit: Yes Status: Acute Assessment and Plan: 1. Poor candidate for surgical intervention. DVT Prophylaxis: EPCD - Time Spent with Patient Total time spent is greater than 50% in coordination of care (as documented) at patient's floor/unit and/or counseling patient: 25 - 35 minutes Internal Medicine: Result - Labs CBC & Chem 7: 12/13/18 05:49 12/13/18 05:49 Labs: Short CBC 12/12/18 12/13/18 Range/Units 10:10 05:49 WBC 11.5 H 13.6 H (4.3-11.1) K/mcL Hgb 8.8 L 9.5 L (11.5-15.4) g/dL Hct 32.1 L 34.3 L (35.3-44.9) % Plt Count 183 166 (140-400) K/mcL Neutrophils # 11.0 H 12.8 H (1.6-8.9) K/mcL BMP 12/12/18 12/13/18 10:10 05:49 Sodium 134 L 137 Potassium 5.6 H 4.6 Chloride 91 L 90 L Carbon Dioxide 39 H 39 H BUN 38 H 31 H Creatinine 0.96 0.80 Glucose 154 H 121 H Calcium 8.8 8.8 - ABG Interpretation ABG results: ABG ABG pH 7.31 pH Units (7.32-7.45) L 12/13/18 05:35 ABG pCO2 84 mmHg (35-45) H* 12/13/18 05:35 ABG pO2 127 mmHg (85-104) H 12/13/18 05:35 ABG O2 Saturation 98 % (95-98) 12/13/18 05:35 - Impressions Impressions Chest X-Ray 12/12/18 22:45 IMPRESSION: Stable bibasilar consolidation and bilateral pleural effusion; pneumonia is a consideration. Pulmonary sequela typical of that seen with smoking, including probable COPD; correlate with clinical history. Calcific atherosclerotic disease aorta. D/ / Cash Dutton / Cash Dutton Interpreting Provider: Cash Dutton Consult Discharge Plan - Plan Referrals: Jacqueline Hilton DO [Primary Care Provider] - __ (6) Aortic stenosis Qualifiers: Cardiac valve disease etiology: etiology unspecified Qualified Code(s): I35.0 - Nonrheumatic aortic (valve) stenosis
[2018-12-13] MEDS: *HR* LORazepam 2 MG/ML VIAL IVP PRN (20:06)
[2018-12-14] MEDS: Ipratropium/Albuterol Neb 3 ML IH SCH ×8 (00:15→23:56)
[2018-12-14 02:14] LABS: Hemoglobin 9.6 g/dL (11.5-15.4); Nucleated Red Blood Cells 0.5 /100 WBC (0)
[2018-12-14 02:16] LABS: Hematocrit 35.6 % (35.3-44.9); Mean Corpuscular Hemoglobin 19.7 pg (28.0-33.3); Mean Corpuscular Volume 73.1 fL (83.0-100.0); Platelet Count 176 K/mcL (140-400); Red Blood Count 4.87 M/mcL (3.82-4.97); Red Cell Distribution Width 29.1 % (11.5-14.5); White Blood Count 13.5 K/mcL (4.3-11.1)
[2018-12-14 02:34] LABS: Alanine Aminotransferase 52 Units/L (7-52); Albumin 3.5 g/dL (3.5-5.7); Albumin/Globulin Ratio 1.5 (1.1-2.2); Alkaline Phosphatase 60 Units/L (34-104); Aspartate Amino Transferase 33 Units/L (13-39); BUN/Creatinine Ratio 43 (6-26); Bilirubin,Total 0.5 mg/dL (0.3-1.0); Blood Urea Nitrogen 32 mg/dL (8-23); Calcium 8.5 mg/dL (8.6-10.3); Carbon Dioxide 37 mEq/L (23-29); Chloride 92 mEq/L (98-107); Globulin 2.3 g/dL (2.4-3.5); Glucose 156 mg/dL (70-105); Osmolality,Calculated 286 (280-300); Potassium 4.8 mEq/L (3.5-5.1); Sodium 133 mEq/L (136-145); Total Protein 5.8 g/dL (6.4-8.9); eGFR For African Americans > 60 (> 60); eGFR For Non-African Americans > 60 (> 60)
[2018-12-14 02:52] LABS: Platelet Estimate Normal (Normal)
[2018-12-14 03:09] LABS: Lymphocytes # 0.3 K/mcL (0.6-4.6); Monocytes # 0.3 K/mcL (0.0-1.3)
[2018-12-14 03:22] LABS: Anisocytosis 2+ (Not Present); Target Cells 1+ (Not Present)
[2018-12-14 03:23] LABS: Poikilocytosis 1+ (Not Present)
[2018-12-14] MEDS: MethylPREDNISolone 40 MG/ML VIAL IVP SCH (03:54)
[2018-12-14 05:29] LABS: ABG Base Excess 12 mEq/L (-2 to 3); ABG HCO3 44 mEq/L (21-27); ABG Oxygen Saturation 98 % (95-98); ABG PCO2 107 mmHg (35-45); ABG PH 7.22 pH Units (7.32-7.45); ABG PO2 129 mmHg (85-104); ABG TCO2 47 mEq/L (20-26)
[2018-12-14] MEDS: Pantoprazole 40 MG VIAL IVP SCH (06:21)
[2018-12-14 07:27] LABS: ABG Base Excess 14 mEq/L (-2 to 3); ABG HCO3 43 mEq/L (21-27); ABG Oxygen Saturation 87 % (95-98); ABG PCO2 78 mmHg (35-45); ABG PH 7.34 pH Units (7.32-7.45); ABG PO2 59 mmHg (85-104); ABG TCO2 45 mEq/L (20-26)
--- NOTE | 2018-12-14 08:26 | Internal Med Progress Note ---
Hospitalist Progress Note - Encounter Date of Encounter: 12/14/18 Time of Encounter: 07:15 - Subjective Interval History: I discussed the patient case with Dr. Mercado, patient nurse, and resident team on rounds this morning. Patient continues to be BiPAP dependent at night and throughout most of the day. She was restless in the night and required some sleep aid, given as Benadryl. Blood gas this morning reveals persistent respiratory acidosis. If she is unable to come off BiPAP, she will likely need tracheostomy placement versus comfort care measures only. Dr. Mercado and I discussed this at length, and we are both in agreement. We will discuss with palliative care and ask them to assist us in further discussions and planning. Overall prognosis patient remains very grim. - Exam Vitals: Temp Pulse Resp BP Pulse Ox 97.5 F L 94 13 119/62 99 12/14/18 07:15 12/14/18 08:18 12/14/18 08:18 12/14/18 08:18 12/14/18 08:18 Exam: General: somnolent, easily arousable, breathing in sync with BiPap HEENT: Pediatric BiPap in place Chest: Coarse rhonchi with scattered wheezes, distant breath sounds, grade 2- 3/6 systolic murmur, RRR, distant heart sounds Abdomen: soft, NT, scaphoid Ext: muscle wasting/atrophy; 1+ pulses Neuro: somnolen but arousable, no focal deficits Skin: warm, dry, intact - Assessment and Plan (1) Acute on chronic respiratory failure with hypoxia and hypercapnia Current Visit: Yes Status: Acute Assessment and Plan: 1. She appears to be more BiPap dependent. 2. Plan to discuss with palliative and ongoing discussions with Pulmonary. She will likely need tracheostomy or comfort care measures only. Either way, however, her prognosis is very poor. 3. Continue current measures until definitive plan is formulated. (2) Acute exacerbation of chronic obstructive airways disease Current Visit: Yes Status: Acute Assessment and Plan: 1. As above. 2. Wean steroids as able. (3) Pulmonary HTN Current Visit: Yes Status: Chronic Assessment and Plan: 1. Poor prognosis. 2. Supportive measures as above. (4) Chronic diastolic heart failure Current Visit: Yes Status: Chronic Assessment and Plan: 1. No acute process; continue monitoring fluid balance. 2. Home meds as appropriate. (5) Goals of care, counseling/discussion Current Visit: Yes Status: Acute Assessment and Plan: 1. As above, need to discuss with palliative care team, patient, family regarding goals of care. (6) Aortic stenosis Current Visit: Yes Status: Acute Assessment and Plan: 1. Poor candidate for surgical intervention. - Time Spent with Patient Total time spent is greater than 50% in coordination of care (as documented) at patient's floor/unit and/or counseling patient: less than 15 minutes Internal Medicine: Result - Labs CBC & Chem 7: 12/14/18 01:21 12/14/18 01:21 Labs: Short CBC 12/14/18 Range/Units 01:21 WBC 13.5 H (4.3-11.1) K/mcL Hgb 9.6 L (11.5-15.4) g/dL Hct 35.6 (35.3-44.9) % Plt Count 176 (140-400) K/mcL Neutrophils # 13.0 H (1.6-8.9) K/mcL BMP 12/14/18 01:21 Sodium 133 L Potassium 4.8 Chloride 92 L Carbon Dioxide 37 H BUN 32 H Creatinine 0.74 Glucose 156 H Calcium 8.5 L Liver Function 12/14/18 Range/Units 01:21 Total Bilirubin 0.5 (0.3-1.0) mg/dL AST 33 (13-39) Units/L ALT 52 (7-52) Units/L Alkaline Phosphatase 60 (34-104) Units/L Albumin 3.5 (3.5-5.7) g/dL - ABG Interpretation ABG results: ABG ABG pH 7.34 pH Units (7.32-7.45) D 12/14/18 07:23 ABG pCO2 78 mmHg (35-45) H* D 12/14/18 07:23 ABG pO2 59 mmHg (85-104) L D 12/14/18 07:23 ABG O2 Saturation 87 % (95-98) L 12/14/18 07:23 Consult Discharge Plan - Plan Referrals: Jacqueline Hilton, DO [Primary Care Provider] - __ (6) Aortic stenosis Qualifiers: Cardiac valve disease etiology: etiology unspecified Qualified Code(s): I35.0 - Nonrheumatic aortic (valve) stenosis
[2018-12-14] MEDS: Insulin LISPRO 300 UNITS/3 ML VIAL SQ SCH ×3 (08:43→17:25)
[2018-12-14] MEDS: Chlorhexidine Rinse 15 ML MOUTHWASH MM SCH ×2 (08:44→21:57)
--- NOTE | 2018-12-14 09:36 | Internal Med Progress Note ---
<Conor Hurst - Last Filed: 12/14/18 11:21> Hospitalist Progress Note - Encounter Date of Encounter: 12/14/18 Time of Encounter: 09:38 - Subjective Interval History: Patient is a 73-year-old female with a past medical history of diastolic congestive heart failure with preserved ejection fraction, severe end-stage COPD, severe aortic stenosis, pulmonary hypertension and presented to the ED on December 08 due to 2 day history of gradually progressive and worsening dyspnea associated with a productive cough with mild sputum production that she is unable to characterize. The patient's grandson/caregiver stated that for the past several months patient has had declining cognitive function with increasing confusion. Upon hospital admission the patient was found to be anemic and received one unit of packed red blood cells at which time she became progressively worse with breathing without a change in her O2 sat. Patient was noted to have crackles at her lung bases in ABG yielded a respiratory acidosis. Patient was given Lasix and transferred to [address] [place] [address] and placed on BiPAP. Overnight resident physician Dr. Luna Key stated that she was called patient's bedside early the morning of 12/10 due to worsening respiratory function. The patient was noted to be lethargic and was unable to protect her own airway best decision was made for emergent intubation at that time which was accomplished without difficulty. Patient was placed on a ventilator and transferred to ICU for further evaluation and management. During her ICU course the patient was successfully extubated and placed on BiPAP which was tolerated well. Patient was eventually discharged back to the floor from the ICU on 12/12. Consult was placed discussions regarding goals of care were established and patient's CODE STATUS was changed to DNR CC arrest. On the evening of December 12 rapid response was called at 2114 due to desaturation into the 60% range of SPO2 patient received DuoNeb nebs and was placed on BiPAP. An ABG showed respiratory acidosis the patient was transferred back into the ICU. Upon my initial examination this morning the patient is awake, alert, engaged conversation is able to answer questions appropriately. She is on BiPAP which she is tolerating well-although she says it is uncomfortable and she does not like wearing it. It was explained to patient that she will likely be BiPAP dependent at this point as she has had multiple episodes of desaturations when taking off her BiPAP. Long-term goals of care will be discussed with patient with palliative care team and her POA "Shaka". Patient will most likely require a tracheostomy placement or comfort care and hospice/palliative care. We will plan to discharge patient from ICU based upon palliative care team's recommendations and patient wishes. - Exam Vitals: Temp Pulse Resp BP Pulse Ox 97.5 F L 94 13 119/62 99 12/14/18 07:15 12/14/18 08:18 12/14/18 08:18 12/14/18 08:18 12/14/18 08:18 Exam: Patient is generally somnolent but easily arousable to verbal stimuli in the room. She is tolerating the BiPAP well however she states that it is uncomfortable for her and she does not like to wear it. Vital signs are currently within normal limits. Patient is utilizing a pediatric BiPAP with this time due to her body habitus. Pupils equal round reactive to light and accommodation external ocular muscles are intact patient tracks well around the room, there are no overt lateralizing signs, trachea is midline and supple, breath sounds reveal coarse rhonchi throughout, cardiac rhythm regular rate regular there is a harsh 3/6 holosystolic murmur consistent with the patient's history of aortic stenosis. Abdomen is soft nontender nondistended, no evidence of pedal edema. Skin is warm pink and dry no cyanosis. - Assessment and Plan (1) Dependence on continuous supplemental oxygen Current Visit: No Status: Chronic Assessment and Plan: Patient's BiPAP dependent with hypercarbia and hypoxemia noted when not compliant. Patient will likely need tracheostomy placement for long-term treatment. Goals of care will be discussed the palliative care. (2) COPD (chronic obstructive pulmonary disease) Current Visit: Yes Status: Chronic Assessment and Plan: See above Continue BiPAP (3) Frailty Current Visit: No Status: Chronic Assessment and Plan: Palliative care consult has been placed palliative is following it will contact the patient's POA "Shaka" for further long-term goals of care planning. Patient will most likely require tracheostomy placement or Comfort Care hospice/palliative care placement. (4) Aortic stenosis Current Visit: No Status: Chronic Assessment and Plan: Vitals are currently normal Continue to monitor (5) CHF (congestive heart failure) Current Visit: No Status: Acute (6) Acute respiratory failure Current Visit: No Status: Acute (7) Diabetes Current Visit: Yes Status: Acute Assessment and Plan: Continue corrective low-dose insulin orders with protocol (8) Anemia Current Visit: No Status: Chronic Assessment and Plan: Hemoglobin improving and stable currently at 9.6 DVT Prophylaxis: EPCD - Time Spent with Patient Total time spent is greater than 50% in coordination of care (as documented) at patient's floor/unit and/or counseling patient: Plan of Care Discussed with: other (Palliative care) Internal Medicine: Result - Labs CBC & Chem 7: 12/14/18 01:21 12/14/18 01:21 Labs: Short CBC 12/14/18 Range/Units 01:21 WBC 13.5 H (4.3-11.1) K/mcL Hgb 9.6 L (11.5-15.4) g/dL Hct 35.6 (35.3-44.9) % Plt Count 176 (140-400) K/mcL Neutrophils # 13.0 H (1.6-8.9) K/mcL BMP 12/14/18 01:21 Sodium 133 L Potassium 4.8 Chloride 92 L Carbon Dioxide 37 H BUN 32 H Creatinine 0.74 Glucose 156 H Calcium 8.5 L Liver Function 12/14/18 Range/Units 01:21 Total Bilirubin 0.5 (0.3-1.0) mg/dL AST 33 (13-39) Units/L ALT 52 (7-52) Units/L Alkaline Phosphatase 60 (34-104) Units/L Albumin 3.5 (3.5-5.7) g/dL - ABG Interpretation ABG results: ABG ABG pH 7.34 pH Units (7.32-7.45) D 12/14/18 07:23 ABG pCO2 78 mmHg (35-45) H* D 12/14/18 07:23 ABG pO2 59 mmHg (85-104) L D 12/14/18 07:23 ABG O2 Saturation 87 % (95-98) L 12/14/18 07:23 Consult Discharge Plan - Plan Referrals: Jacqueline Hilton, DO [Primary Care Provider] - <Angel Paz - Last Filed: 12/14/18 17:27> Hospitalist Progress Note - Encounter Date of Encounter: 12/14/18 - Exam Vitals: Temp Pulse Resp BP Pulse Ox 98.3 F 75 18 146/74 95 12/14/18 17:17 12/14/18 17:17 12/14/18 17:17 12/14/18 17:17 12/14/18 17:17 - Assessment and Plan (1) Acute on chronic respiratory failure with hypoxia and hypercapnia Current Visit: Yes Status: Acute (2) Acute exacerbation of chronic obstructive airways disease Current Visit: Yes Status: Acute (3) Pulmonary HTN Current Visit: Yes Status: Chronic (4) Chronic diastolic heart failure Current Visit: Yes Status: Chronic (5) Goals of care, counseling/discussion Current Visit: Yes Status: Acute (6) Aortic stenosis Current Visit: Yes Status: Acute - Time Spent with Patient Total time spent is greater than 50% in coordination of care (as documented) at patient's floor/unit and/or counseling patient: Internal Medicine: Result - Labs CBC & Chem 7: 12/14/18 01:21 12/14/18 01:21 Labs: Short CBC 12/14/18 Range/Units 01:21 WBC 13.5 H (4.3-11.1) K/mcL Hgb 9.6 L (11.5-15.4) g/dL Hct 35.6 (35.3-44.9) % Plt Count 176 (140-400) K/mcL Neutrophils # 13.0 H (1.6-8.9) K/mcL BMP 12/14/18 01:21 Sodium 133 L Potassium 4.8 Chloride 92 L Carbon Dioxide 37 H BUN 32 H Creatinine 0.74 Glucose 156 H Calcium 8.5 L Liver Function 12/14/18 Range/Units 01:21 Total Bilirubin 0.5 (0.3-1.0) mg/dL AST 33 (13-39) Units/L ALT 52 (7-52) Units/L Alkaline Phosphatase 60 (34-104) Units/L Albumin 3.5 (3.5-5.7) g/dL - ABG Interpretation ABG results: ABG ABG pH 7.34 pH Units (7.32-7.45) D 12/14/18 07:23 ABG pCO2 78 mmHg (35-45) H* D 12/14/18 07:23 ABG pO2 59 mmHg (85-104) L D 12/14/18 07:23 ABG O2 Saturation 87 % (95-98) L 12/14/18 07:23 - Attending Attestation Please see my separately dictated progress note for full details. I discussed the patient case with the ICU team and extensively with palliative care. Patient met with palliative care this afternoon and decided to proceed with comfort care measures only. She decided to forego any aggressive treatment, including tracheostomy or PEG tube. She requests comfort care measures only and her CODE STATUS, as such, was changed to DNR CC. Patient will be transferred to palliative care floor under the hospitalist service with palliative care consultation. She may likely need inpatient hospice depending on her clinical course. As such, care and goals will be for comfort measures only at this time. Other than my comments above and documented findings on my progress note, I agree with Dr. Hurst's assessment and plan. <Conor Hurst - Last Filed: 12/14/18 11:21> (2) COPD (chronic obstructive pulmonary disease) Qualifiers: COPD type: COPD with acute exacerbation Qualified Code(s): J44.1 - Chronic obstructive pulmonary disease with (acute) exacerbation (4) Aortic stenosis Qualifiers: Cardiac valve disease etiology: etiology unspecified Qualified Code(s): I35.0 - Nonrheumatic aortic (valve) stenosis (5) CHF (congestive heart failure) Qualifiers: Heart failure type: diastolic Heart failure chronicity: acute on chronic Qualified Code(s): I50.33 - Acute on chronic diastolic (congestive) heart failure (6) Acute respiratory failure Qualifiers: Qualified Code(s): J96.00 - Acute respiratory failure, unspecified whether with hypoxia or hypercapnia (7) Diabetes Qualifiers: Diabetes mellitus type: other specified (including SABINA) Diabetes mellitus intermediate insulin use: unspecified admissions clerk insulin use status Diabetes mellitus complication status: with other specified complication Qualified Code(s): E13.69 - Other specified diabetes mellitus with other specified complication (8) Anemia Qualifiers: Anemia type: other cause Other causes of anemia: other cause, not classified Qualified Code(s): D64.89 - Other specified anemias <Angel Paz - Last Filed: 12/14/18 17:27> (6) Aortic stenosis Qualifiers: Cardiac valve disease etiology: etiology unspecified Qualified Code(s): I35.0 - Nonrheumatic aortic (valve) stenosis
[2018-12-14] MEDS: Folic Acid 1 MG TABLET PO SCH (10:18)
[2018-12-14] MEDS ORDERED: *HR* Metoprolol 5 MG/5 ML VIAL IVP SCH (12:00)
[2018-12-14] MEDS ORDERED: D5% in Water 1,000 ML IVC PRN (15:25)
[2018-12-14] MEDS ORDERED: Naloxone 0.4 MG/ML INJ IVP PRN (15:25)
[2018-12-14] MEDS ORDERED: Ondansetron 4 MG/2 ML VIAL IVP PRN (15:25)
[2018-12-14] MEDS ORDERED: Simethicone 80 MG TAB.CHEW PO PRN (15:25)
[2018-12-14] MEDS ORDERED: *HR* Dextrose 50 % in Water (Syg) 50 ML SYRINGE IVP PRN (15:25)
[2018-12-14] MEDS ORDERED: *HR* LORazepam 2 MG/ML VIAL IVP PRN (15:25)
[2018-12-14] MEDS ORDERED: Morphine Sulfate Oral CONC 10 MG/0.5 ML ORAL.SYG SL PRN (15:59)
[2018-12-14] MEDS ORDERED: *HR* LORazepam Oral Conc 2 MG/ML SL PRN (16:00)
--- NOTE | 2018-12-14 16:12 | Palliative Progress Note ---
Date of Encounter: 12/14/18 Time of Encounter: 13:00 - Assessment and plan (1) Dyspnea Current Visit: Yes Status: Acute Assessment and plan: WIll continue supportive oxygen and bipap will be changed to PRN. Low dose Roxanol PRN and titrate as needed. Qualifiers: Dyspnea type: unspecified Qualified Code(s): R06.00 - Dyspnea, unspecified (2) Anxiety Current Visit: Yes Status: Acute Assessment and plan: Change IV Lorazepam to oral concentrate. MOnitor. (3) Goals of care, counseling/discussion Current Visit: Yes Status: Acute Assessment and plan: Patient alert and oriented and able to participate in conversation. 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 Appointed friend Jere as primary POA with another friend Ebony as alternate. Discussed clinical status and prognosis, for aggressive treatment at this point, trach/peg recommended or transitioning to comfort care focusing on quality of life and symptom management, possibly hospice involvement. Patient decided to transition code status to comfort care, agreeing also to transfer to ECF facility and [facility]. They would like to pursue [facility]. Copies of POA/DNR given to patient and placed on medical record. She can transfer out of ICU under hospitalist and likely to ECF when bed available. Will f/u in am. D/W Dr. Paz. (4) Pulmonary cachexia due to chronic obstructive pulmonary disease Current Visit: No Status: Chronic (5) COPD (chronic obstructive pulmonary disease) Current Visit: Yes Status: Chronic Qualifiers: COPD type: COPD with acute exacerbation Qualified Code(s): J44.1 - Chronic obstructive pulmonary disease with (acute) exacerbation (6) Chronic diastolic heart failure Current Visit: Yes Status: Chronic (7) Palliative care encounter Current Visit: Yes Status: Acute (8) Aortic stenosis Current Visit: Yes Status: Acute Qualifiers: Cardiac valve disease etiology: etiology unspecified Qualified Code(s): I35.0 - Nonrheumatic aortic (valve) stenosis - Time Spent With Patient Total time spent is greater than 50% in coordination of care (as documented) at patient's floor/unit and/or counseling patient: - Subjective Interval history: Patient awake and alert, off BIPAP. She is alert and oriented x3. Denies pain or dyspnea. Verbalized dislike of bipap. Vitals stable. Friend, Ezra and Ebony at bedside. - Constitutional Vitals: Abnormal lab results WBC 13.5 K/mcL (4.3-11.1) H 12/14/18 01:21 RBC 5.01 M/mcL (3.82-4.97) H 12/10/18 04:49 Hgb 9.6 g/dL (11.5-15.4) L 12/14/18 01:21 Hct 34.3 % (35.3-44.9) L 12/13/18 05:49 MCV 73.1 fL (83.0-100.0) L 12/14/18 01:21 MCH 19.7 pg (28.0-33.3) L 12/14/18 01:21 MCHC 27.0 g/dL (31.6-35.5) L 12/14/18 01:21 RDW 29.1 % (11.5-14.5) H 12/14/18 01:21 Plt Count 132 K/mcL (140-400) L 12/11/18 04:31 Band Neutrophils % 12.0 % (0-4) H 12/14/18 01:21 Neutrophils # 13.0 K/mcL (1.6-8.9) H 12/14/18 01:21 Lymphocytes # 0.3 K/mcL (0.6-4.6) L 12/14/18 01:21 Nucleated RBCs/100 WBC 0.5 /100 WBC (0) H 12/14/18 01:21 Hyposegmented Neuts Present (Not Present) A 12/14/18 01:21 Platelet Estimate Slight Decrease (Normal) L 12/11/18 04:31 Polychromasia 2+ (Not Present) A 12/11/18 04:31 Hypochromasia Present (Not Present) A 12/13/18 05:49 Poikilocytosis 1+ (Not Present) A 12/14/18 01:21 Anisocytosis 2+ (Not Present) A 12/14/18 01:21 Microcytosis Present (Not Present) A 12/13/18 05:49 Target Cells 1+ (Not Present) A 12/14/18 01:21 Tear Drop Cells 1+ (Not Present) A 12/09/18 02:02 Stomatocytes 1+ (Not Present) A 12/13/18 05:49 ABG pH 7.22 pH Units (7.32-7.45) L 12/14/18 05:24 ABG pCO2 78 mmHg (35-45) H* D 12/14/18 07:23 ABG pO2 59 mmHg (85-104) L D 12/14/18 07:23 ABG HCO3 43 mEq/L (21-27) H 12/14/18 07:23 ABG Total CO2 45 mEq/L (20-26) H 12/14/18 07:23 ABG O2 Saturation 87 % (95-98) L 12/14/18 07:23 ABG Base Excess 14 mEq/L (-2 to 3) H 12/14/18 07:23 Sodium 133 mEq/L (136-145) L 12/14/18 01:21 Potassium 5.6 mEq/L (3.5-5.1) H 12/12/18 10:10 Chloride 92 mEq/L (98-107) L 12/14/18 01:21 Carbon Dioxide 37 mEq/L (23-29) H 12/14/18 01:21 BUN 32 mg/dL (8-23) H 12/14/18 01:21 Est GFR (Non-Af Amer) 57 (> 60) L 12/12/18 10:10 BUN/Creatinine Ratio 43 (6-26) H 12/14/18 01:21 Glucose 156 mg/dL (70-105) H 12/14/18 01:21 POC Glucose 140 mg/dL (70-99) H 12/13/18 19:20 Calculated Osmolality 276 (280-300) L 12/08/18 10:50 Calcium 8.5 mg/dL (8.6-10.3) L 12/14/18 01:21 Iron 40 mcg/dL (50-170) L 12/09/18 02:02 Transferrin 106 mg/dL (203-362) L 12/09/18 02:02 C-Reactive Protein 26 mg/L (Less than 10) H 12/11/18 10:10 B-Natriuretic Peptide 493 pg/mL (Less than 100) H 12/08/18 10:49 Serum Total Protein 5.8 g/dL (6.4-8.9) L 12/14/18 01:21 Globulin 2.3 g/dL (2.4-3.5) L 12/14/18 01:21 Urine Protein 30 mg/dL (Neg-Trace) H 12/09/18 15:45 Urine Blood Trace (Negative) H 12/09/18 15:45 Stool Occult Blood Positive (Negative) A 12/11/18 10:00 Crossmatch See Detail 12/09/18 06:48 General appearance: Present: disheveled, no acute distress, thin - Respiratory Respiratory exam: Present: decreased breath sounds, CTAB - Cardiovascular Cardiovascular exam: Present: +S1, +S2 - GI/Abdominal GI/Abdominal exam: Present: normal bowel sounds, soft - Extremities Exam Extremities exam: Present: normal capillary refill, normal inspection - Neurological Exam Neurological exam: Present: alert, oriented X3, strengths equal and symetr throughout - Skin Skin exam: Present: dry, pallor, warm Palliative Quality Palliative Quality: Screen for Code Status: Yes (Pt intubated, phonecall placed to pt's son (LNOK).), Screen for Goals of Care: Yes, Screen for Pain: Yes, If Pain Regimen Started, Initiate Bowel Regimen: NA, Screen for Nausea/Vomitting: Yes Code Status: 12/08/18 13:21 Resuscitation Status: Active [RES] Routine Comment: Resuscitation Status: Full Code 12/10/18 15:38 DNR [Resuscitation Status: Active] [RES] Routine Comment: Resuscitation Status: DNR-Comfort Care-Arrest 12/14/18 13:56 DNR [Resuscitation Status: Active] [RES] Routine Comment: Resuscitation Status: DNR-Comfort Care - Labs CBC & Chem 7: 12/14/18 01:21 12/14/18 01:21 Labs: Laboratory Results - last 24 hr 12/13/18 12/13/18 12/13/18 11:16 15:15 19:20 WBC RBC Hgb Hct MCV MCH MCHC RDW Plt Count MPV Seg Neutrophils % Band Neutrophils % Lymphocytes % Monocytes % Neutrophils # Lymphocytes # Monocytes # Nucleated RBCs/100 WBC Hyposegmented Neuts Platelet Estimate Poikilocytosis Anisocytosis Target Cells ABG pH ABG pCO2 ABG pO2 ABG HCO3 ABG Total CO2 ABG O2 Saturation ABG Base Excess O2 Delivery Device Inspired O2 Sodium Potassium Chloride Carbon Dioxide BUN Creatinine Est GFR ( Amer) Est GFR (Non-Af Amer) BUN/Creatinine Ratio Glucose POC Glucose 137 H 155 H 140 H Calculated Osmolality Calcium Total Bilirubin AST ALT Alkaline Phosphatase Serum Total Protein Albumin Globulin Albumin/Globulin Ratio Person Notif of Crit 12/14/18 12/14/18 12/14/18 01:21 01:21 05:24 WBC 13.5 H RBC 4.87 Hgb 9.6 L Hct 35.6 MCV 73.1 L MCH 19.7 L MCHC 27.0 L RDW 29.1 H Plt Count 176 MPV TNP Seg Neutrophils % 84.0 Band Neutrophils % 12.0 H Lymphocytes % 2.0 Monocytes % 2.0 Neutrophils # 13.0 H Lymphocytes # 0.3 L Monocytes # 0.3 Nucleated RBCs/100 WBC 0.5 H Hyposegmented Neuts Present A Platelet Estimate Normal Poikilocytosis 1+ A Anisocytosis 2+ A Target Cells 1+ A ABG pH 7.22 L ABG pCO2 107 H* ABG pO2 129 H ABG HCO3 44 H ABG Total CO2 47 H ABG O2 Saturation 98 ABG Base Excess 12 H O2 Delivery Device Inspired O2 Sodium 133 L Potassium 4.8 Chloride 92 L Carbon Dioxide 37 H BUN 32 H Creatinine 0.74 Est GFR ( Amer) > 60 Est GFR (Non-Af Amer) > 60 BUN/Creatinine Ratio 43 H Glucose 156 H POC Glucose Calculated Osmolality 286 Calcium 8.5 L Total Bilirubin 0.5 AST 33 ALT 52 Alkaline Phosphatase 60 Serum Total Protein 5.8 L Albumin 3.5 Globulin 2.3 L Albumin/Globulin Ratio 1.5 Person Notif of Crit carol buchanan 12/14/18 07:23 WBC RBC Hgb Hct MCV MCH MCHC RDW Plt Count MPV Seg Neutrophils % Band Neutrophils % Lymphocytes % Monocytes % Neutrophils # Lymphocytes # Monocytes # Nucleated RBCs/100 WBC Hyposegmented Neuts Platelet Estimate Poikilocytosis Anisocytosis Target Cells ABG pH 7.34 D ABG pCO2 78 H* D ABG pO2 59 L D ABG HCO3 43 H ABG Total CO2 45 H ABG O2 Saturation 87 L ABG Base Excess 14 H O2 Delivery Device BiPAP Inspired O2 30.0 Sodium Potassium Chloride Carbon Dioxide BUN Creatinine Est GFR ( Amer) Est GFR (Non-Af Amer) BUN/Creatinine Ratio Glucose POC Glucose Calculated Osmolality Calcium Total Bilirubin AST ALT Alkaline Phosphatase Serum Total Protein Albumin Globulin Albumin/Globulin Ratio Person Notif of Crit naeugene - ABG Interpretation ABG results: ABG ABG pH 7.34 pH Units (7.32-7.45) D 12/14/18 07:23 ABG pCO2 78 mmHg (35-45) H* D 12/14/18 07:23 ABG pO2 59 mmHg (85-104) L D 12/14/18 07:23 ABG O2 Saturation 87 % (95-98) L 12/14/18 07:23 Consult Discharge Plan - Plan Referrals: Jacqueline Hilton DO [Primary Care Provider] -
[2018-12-15] MEDS: Ipratropium/Albuterol Neb 3 ML IH SCH ×3 (03:49→12:06)
[2018-12-15] MEDS: Insulin LISPRO 300 UNITS/3 ML VIAL SQ SCH ×2 (08:47→13:05)
[2018-12-15] MEDS: Chlorhexidine Rinse 15 ML MOUTHWASH MM SCH (08:48)
[2018-12-15] MEDS ORDERED: Pantoprazole 40 MG VIAL IVP SCH (09:00)
[2018-12-15] MEDS ORDERED: *HR* Metoprolol 5 MG/5 ML VIAL IVP SCH (09:00)
[2018-12-15] MEDS ORDERED: methylPREDNISolone 125 MG/2 ML VIAL IVP SCH (09:00)
[2018-12-15] MEDS ORDERED: Sennosides 8.6 MG TABLET PO SCH (09:00)
--- NOTE | 2018-12-15 11:15 | Palliative Progress Note ---
Date of Encounter: 12/15/18 Time of Encounter: 11:57 - Assessment and plan (1) Goals of care, counseling/discussion Current Visit: Yes Status: Acute Assessment and plan: Pt transitioned to full comfort care yesterday afternoon. Plan for discharge to [facility] ([place] with [facility]. Per , pt has been accepted, likely to discharge today. (2) Generalized pain Current Visit: Yes Status: Acute Assessment and plan: Continue Roxanol oral concentrate 2.5mg Q4hr PRN for pain or dyspnea. (3) Constipation Current Visit: Yes Status: Acute Assessment and plan: Poorly Controlled today- Start Senna 17.2mg daily to start. [order entered] Goal is daily BM while on opioid therapy. (4) Shortness of breath Current Visit: Yes Status: Acute Assessment and plan: Opioids as above will assist with sensation of breathlessness. Fan to face PRN. (5) Anxiety Current Visit: Yes Status: Acute Assessment and plan: Continue Ativan 0.5mg SL Q4hr PRN for anxiety. (6) Agitation Current Visit: Yes Status: Acute Assessment and plan: Currently well controlled. If pt becomes agitated, recommend Haldol 0.5mg PO Q6hr PRN. (7) COPD (chronic obstructive pulmonary disease) Current Visit: Yes Status: Chronic Qualifiers: COPD type: COPD with acute exacerbation Qualified Code(s): J44.1 - Chronic obstructive pulmonary disease with (acute) exacerbation (8) Aortic stenosis Current Visit: No Status: Chronic Qualifiers: Cardiac valve disease etiology: etiology unspecified Qualified Code(s): I35.0 - Nonrheumatic aortic (valve) stenosis (9) Palliative care encounter Current Visit: Yes Status: Acute Assessment and plan: 4-day supply of Roxanol and Ativan sent to [facility] for fill. - Time Spent With Patient Total time spent is greater than 50% in coordination of care (as documented) at patient's floor/unit and/or counseling patient: Greater than 35 minutes - Subjective Interval history: Pt lying in bed, NAD, CAM negative on exam. Pt's friends Ezra (POA) and Ebony (POA #2) present at bedside during visit. Pt denies shortness of breath at the time of the visit, reports she wore her BiPap last night. Pt reports mild pain in her abdomen today, reports constipation. Discussed need for bowel regimen while on opioid therapy. Pt denies anxiety at the time of the visit, discussed current available symptom medications. Pt denies any additional symptoms or needs at this time. - Constitutional Vitals: Abnormal lab results WBC 13.5 K/mcL (4.3-11.1) H 12/14/18 01:21 RBC 5.01 M/mcL (3.82-4.97) H 12/10/18 04:49 Hgb 9.6 g/dL (11.5-15.4) L 12/14/18 01:21 Hct 34.3 % (35.3-44.9) L 12/13/18 05:49 MCV 73.1 fL (83.0-100.0) L 12/14/18 01:21 MCH 19.7 pg (28.0-33.3) L 12/14/18 01:21 MCHC 27.0 g/dL (31.6-35.5) L 12/14/18 01:21 RDW 29.1 % (11.5-14.5) H 12/14/18 01:21 Plt Count 132 K/mcL (140-400) L 12/11/18 04:31 Band Neutrophils % 12.0 % (0-4) H 12/14/18 01:21 Neutrophils # 13.0 K/mcL (1.6-8.9) H 12/14/18 01:21 Lymphocytes # 0.3 K/mcL (0.6-4.6) L 12/14/18 01:21 Nucleated RBCs/100 WBC 0.5 /100 WBC (0) H 12/14/18 01:21 Hyposegmented Neuts Present (Not Present) A 12/14/18 01:21 Platelet Estimate Slight Decrease (Normal) L 12/11/18 04:31 Polychromasia 2+ (Not Present) A 12/11/18 04:31 Hypochromasia Present (Not Present) A 12/13/18 05:49 Poikilocytosis 1+ (Not Present) A 12/14/18 01:21 Anisocytosis 2+ (Not Present) A 12/14/18 01:21 Microcytosis Present (Not Present) A 12/13/18 05:49 Target Cells 1+ (Not Present) A 12/14/18 01:21 Tear Drop Cells 1+ (Not Present) A 12/09/18 02:02 Stomatocytes 1+ (Not Present) A 12/13/18 05:49 ABG pH 7.22 pH Units (7.32-7.45) L 12/14/18 05:24 ABG pCO2 78 mmHg (35-45) H* D 12/14/18 07:23 ABG pO2 59 mmHg (85-104) L D 12/14/18 07:23 ABG HCO3 43 mEq/L (21-27) H 12/14/18 07:23 ABG Total CO2 45 mEq/L (20-26) H 12/14/18 07:23 ABG O2 Saturation 87 % (95-98) L 12/14/18 07:23 ABG Base Excess 14 mEq/L (-2 to 3) H 12/14/18 07:23 Sodium 133 mEq/L (136-145) L 12/14/18 01:21 Potassium 5.6 mEq/L (3.5-5.1) H 12/12/18 10:10 Chloride 92 mEq/L (98-107) L 12/14/18 01:21 Carbon Dioxide 37 mEq/L (23-29) H 12/14/18 01:21 BUN 32 mg/dL (8-23) H 12/14/18 01:21 Est GFR (Non-Af Amer) 57 (> 60) L 12/12/18 10:10 BUN/Creatinine Ratio 43 (6-26) H 12/14/18 01:21 Glucose 156 mg/dL (70-105) H 12/14/18 01:21 POC Glucose 107 mg/dL (70-99) H 12/15/18 06:46 Calculated Osmolality 276 (280-300) L 12/08/18 10:50 Calcium 8.5 mg/dL (8.6-10.3) L 12/14/18 01:21 Iron 40 mcg/dL (50-170) L 12/09/18 02:02 Transferrin 106 mg/dL (203-362) L 12/09/18 02:02 C-Reactive Protein 26 mg/L (Less than 10) H 12/11/18 10:10 B-Natriuretic Peptide 493 pg/mL (Less than 100) H 12/08/18 10:49 Serum Total Protein 5.8 g/dL (6.4-8.9) L 12/14/18 01:21 Globulin 2.3 g/dL (2.4-3.5) L 12/14/18 01:21 Urine Protein 30 mg/dL (Neg-Trace) H 12/09/18 15:45 Urine Blood Trace (Negative) H 12/09/18 15:45 Stool Occult Blood Positive (Negative) A 12/11/18 10:00 Crossmatch See Detail 12/09/18 06:48 - Additional findings Additional findings: CONSTITUTIONAL/GENERAL: Awake, interactive, NAD, lying in bed. CAM negative on exam. Ear/Nose/Mouth/Throat (EMNT): Patent, atraumatic. CARDIOVASCULAR: Pulse regular; No edema. No cyanosis/ischemia. RESPIRATORY: Slightly labored on exertion. Oxygen via NC, BiPap intermittently. GASTROINTESTINAL: Rounded, slightly-distended. MUSCULOSKELETAL: No deformities; No joint swelling or erythema. NEUROLOGIC: No gross motor or sensory deficits appreciated. PSYCHIATRY: Alert, attentive. Behavior appropriate to situation. Palliative Quality Palliative Quality: Screen for Code Status: Yes (Pt transitioned to DNRCC yesterday.), Screen for Goals of Care: Yes, Screen for Pain: Yes, If Pain Regimen Started, Initiate Bowel Regimen: Yes (Started on senna daily today.), Screen for Nausea/Vomitting: Yes Code Status: 12/08/18 13:21 Resuscitation Status: Active [RES] Routine Comment: Resuscitation Status: Full Code 12/10/18 15:38 DNR [Resuscitation Status: Active] [RES] Routine Comment: Resuscitation Status: DNR-Comfort Care-Arrest 12/14/18 13:56 DNR [Resuscitation Status: Active] [RES] Routine Comment: Resuscitation Status: DNR-Comfort Care - Labs CBC & Chem 7: 12/14/18 01:21 12/14/18 01:21 Labs: Laboratory Results - last 24 hr 12/14/18 12/14/18 12/14/18 07:11 11:12 17:14 POC Glucose 144 H 108 H 132 H 12/15/18 06:46 POC Glucose 107 H - ABG Interpretation ABG results: ABG ABG pH 7.34 pH Units (7.32-7.45) D 12/14/18 07:23 ABG pCO2 78 mmHg (35-45) H* D 12/14/18 07:23 ABG pO2 59 mmHg (85-104) L D 12/14/18 07:23 ABG O2 Saturation 87 % (95-98) L 12/14/18 07:23 Palliative Scale - Palliative Performance Scale How ambulatory is this patient?: Mainly in bed What is patient's level of activity and evidence of disease?: Unable to do most activity, Extensive disease How much self-care assistance does patient require?: Full How much oral intake does the patient have?: Minimal to sips What is this patient's level of consciousness?: Full or confusion Palliative Performance Score: 30 % Consult Discharge Plan - Plan Referrals: Jacqueline Hilton, DO [Primary Care Provider] - Prescriptions: LORazepam Oral Conc [Ativan Oral Conc] 0.5 mg SL Q4HR PRN 4 Days #15 mls PRN Reason: Anxiety Morphine Sulfate Oral CONC [Roxanol Oral Conc] 2.5 mg SL Q6HR PRN 4 Days #15 oral.syg PRN Reason: pain or shortness of breath
--- NOTE | 2018-12-15 13:04 | Discharge Summary ---
- NOTES TO OUTPATIENT PROVIDER Notes to Outpatient Provider: Comfort measures only Date of Encounter: 12/15/18 Time of Encounter: 10:00 - Discharge Diagnosis (1) Acute on chronic respiratory failure with hypoxia and hypercapnia Priority: Primary Status: Acute (2) Acute exacerbation of chronic obstructive airways disease Priority: Secondary Status: Acute (3) Anemia Priority: Secondary Status: Chronic Qualifiers: Anemia type: other cause Other causes of anemia: other cause, not classified Qualified Code(s): D64.89 - Other specified anemias (4) Aortic stenosis Priority: Secondary Status: Chronic Qualifiers: Cardiac valve disease etiology: etiology unspecified Qualified Code(s): I35.0 - Nonrheumatic aortic (valve) stenosis (5) Pulmonary HTN Priority: Secondary Status: Chronic (6) Chronic diastolic heart failure Priority: Secondary Status: Chronic (7) DVT prophylaxis Priority: Secondary Status: Acute Hospital course: Ms. Castro is a 73 year old female with history of oxygen dependent COPD, pulmonary hypertension, heart failure with preserved EF, severe aortic stenosis, who was admitted for acute on chronic hypoxic/hypercapnic respiratory failure secondary to COPD exacerbation. She was also noted to have worsening anemia with stool occult positive. Despite the treatment with steroid and bronchodilator, patient's condition continued to fluctuate requiring ICU transfer x 2 including intubation x 1 as well. Given her poor comorbid status (including severe aortic stenosis is not a candidate for TAVR) prior to presentation, palliative care was consulted and the decision was made to transition her to DNR CC on 12/14. Patient will be discharged to [facility] with [place] hospice service. Discharge discussed with: patient, nurse, case management, ent consultant - Time Spent with Patient Total time spent providing and/or coordinating discharge services:35 mins - Discharge Medications Prescriptions: New Morphine Sulfate Oral CONC [Roxanol Oral Conc] 2.5 mg SL Q6HR PRN 4 Days #15 oral.syg PRN Reason: pain or shortness of breath LORazepam Oral Conc [Ativan Oral Conc] 0.5 mg SL Q4HR PRN 4 Days #15 mls PRN Reason: Anxiety Continued Folic Acid 1 mg PO DAILY Hydroxychloroquine Sulfate [Plaquenil] 200 mg PO DAILY Leflunomide 20 mg PO DAILY Omeprazole [PriLOSEC] 20 mg PO DAILY Tiotropium Br/Olodaterol HCl [Stiolto Respimat Inhal [place]] 2 puff IH DAILY Aspirin Enteric Coated [Aspirin EC] 81 mg PO DAILY #30 tablet. Naproxen Sodium [Aleve] 220 mg PO Q12-24H PRN PRN Reason: Pain Fluticasone Propionate [Flovent Hfa] 1 puff IH BID Furosemide [Lasix] 20 mg PO DAILY PRN #15 tablet PRN Reason: Fluid Retention Discontinued LORazepam [Ativan] 0.5 mg PO Q12H PRN PRN Reason: Anxiety Home Medications: Aspirin Enteric Coated [Aspirin EC] 81 mg PO DAILY #30 tablet. 03/30/18 [Rx] Folic Acid 1 mg PO DAILY 03/30/18 [History] Hydroxychloroquine Sulfate [Plaquenil] 200 mg PO DAILY 03/30/18 [History] Leflunomide 20 mg PO DAILY 03/30/18 [History] Omeprazole [PriLOSEC] 20 mg PO DAILY 03/30/18 [History] Tiotropium Br/Olodaterol HCl [Stiolto Respimat Inhal [place]] 2 puff IH DAILY 03/30/18 [History] Naproxen Sodium [Aleve] 220 mg PO Q12-24H PRN 04/22/18 [History] Fluticasone Propionate [Flovent Hfa] 1 puff IH BID 07/16/18 [History] Furosemide [Lasix] 20 mg PO DAILY PRN #15 tablet 07/19/18 [Rx] LORazepam Oral Conc [Ativan Oral Conc] 0.5 mg SL Q4HR PRN 4 Days #15 mls 12/15/18 [Rx] Morphine Sulfate Oral CONC [Roxanol Oral Conc] 2.5 mg SL Q6HR PRN 4 Days #15 oral.syg 12/15/18 [Rx] Allergies/Adverse Reactions: Allergy/AdvReac Type Severity Reaction Status Date / Time Sulfa (Sulfonamide AdvReac See Verified 12/09/18 10:32 Antibiotics) Comments Date of admission: 12/10/18 16:07 Primary care physician: Moses Rehman Consults: 12/09/18 09:36 Consult to Nurse Navigator [CONS] Routine Comment: COPD 12/10/18 05:26 Consult to Pulmonology [CONS] Routine Consulting Provider: Pulm Crit Care & Sleep Aishwarya Reason for Consult: vent management. Call Completed: No 12/10/18 07:38 Consult to Palliative Care [CONS] Stat Comment: Consulting Provider: Palliative Care Aishwarya Reason for Consult: Edn stage COPD, CHF, Severe Aortic stenosis Time Notified: 07:39 Call Completed: No 12/10/18 10:37 Consult to Nutrition [CONS] Stat Comment: Consulting Provider: NUTRITION Reason for Dietary Consult: Tube Feed Start & Manage - Constitutional Vitals: Temp Pulse Resp BP Pulse Ox 97.9 F 101 18 104/58 100 12/15/18 06:47 12/15/18 06:47 12/15/18 07:27 12/15/18 06:47 12/15/18 07:27 Exam: General: Alert and oriented, mild distress and pursed lip breathing noted. Cachectic Cardiovascular:Normal S1 & S2, No JVD. Pulse regular and normal rate Lungs: Diminished bilaterally with scattered wheezes Abdomen:Soft, non-tender, no rigidity. Extremities:No deformity or swelling Neurological:Normal cognition and motor skills. Non-focal - Patient Status Disposition: Hospice - Medical Facility Condition: Serious - Discharge Instructions Instructions: Chronic Obstructive Pulmonary Disease (DC), Acute Respiratory Distress Syndrome (DC), Diabetes Mellitus Type 2 in Adults (DC) Follow Up With: Jacqueline Hilton DO [Primary Care Provider] - Forms: ED Satisfaction Letter - Diet and Activity Activity: as per physical therapy Diet: diabetic diet
--- NOTE | 2018-12-15 13:07 | Physician Discharge Referral ---
Home Health/Hosp Referral Info Transfer to: Hospice - Diagnosis (1) Acute on chronic respiratory failure with hypoxia and hypercapnia Priority: Primary Status: Acute (2) Acute exacerbation of chronic obstructive airways disease Priority: Secondary Status: Acute (3) Anemia Priority: Secondary Status: Chronic (4) Aortic stenosis Priority: Secondary Status: Chronic (5) Pulmonary HTN Priority: Secondary Status: Chronic (6) Chronic diastolic heart failure Priority: Secondary Status: Chronic (7) DVT prophylaxis Priority: Secondary Status: Acute - Respiratory Orders Oxygen / L per min (titrate to pt's comfort) Smoking Cessation: Smoking cessation has been advised. For more information, call the [place] Tobacco Quit Line at 6-975-EWTR-NOW. - Diet/Nutrition Diet/Nutrition Orders: No Concentrated Sweets - Transfer Medications Prescriptions: LORazepam Oral Conc [Ativan Oral Conc] 0.5 mg SL Q4HR PRN 4 Days #15 mls PRN Reason: Anxiety Morphine Sulfate Oral CONC [Roxanol Oral Conc] 2.5 mg SL Q6HR PRN 4 Days #15 oral.syg PRN Reason: pain or shortness of breath Home Medications: Aspirin Enteric Coated [Aspirin EC] 81 mg PO DAILY #30 tablet. 03/30/18 [Rx] Folic Acid 1 mg PO DAILY 03/30/18 [History] Hydroxychloroquine Sulfate [Plaquenil] 200 mg PO DAILY 03/30/18 [History] Leflunomide 20 mg PO DAILY 03/30/18 [History] Omeprazole [PriLOSEC] 20 mg PO DAILY 03/30/18 [History] Tiotropium Br/Olodaterol HCl [Stiolto Respimat Inhal [place]] 2 puff IH DAILY 03/30/18 [History] Naproxen Sodium [Aleve] 220 mg PO Q12-24H PRN 04/22/18 [History] Fluticasone Propionate [Flovent Hfa] 1 puff IH BID 07/16/18 [History] Furosemide [Lasix] 20 mg PO DAILY PRN #15 tablet 07/19/18 [Rx] LORazepam Oral Conc [Ativan Oral Conc] 0.5 mg SL Q4HR PRN 4 Days #15 mls 12/15/18 [Rx] Morphine Sulfate Oral CONC [Roxanol Oral Conc] 2.5 mg SL Q6HR PRN 4 Days #15 oral.syg 12/15/18 [Rx] Allergies/Adverse Reactions: Allergy/AdvReac Type Severity Reaction Status Date / Time Sulfa (Sulfonamide AdvReac See Verified 12/09/18 10:32 Antibiotics) Comments Certification: Further, I certify that my clinical findings support that this patient is homebound (i.e. absences from home require considerable and taxing effort and are for medical reasons or hindu services or infrequently or short duration when for other reasons) because: Homebound Reason: Patient requires assistance of a person or device to safely leave home, Severity of cardiac or pulmonary status limits activity tolerance Attestation: My signature below is to certify that this patient is under my care and that I, or nurse practitioner, or a physician's assistant refinery operator working with me, has a [id number] encounter with this patient.
--- NOTE | 2018-12-15 13:13 | Physician Discharge Referral ---
ExtendedCare Referral Info Provider in Charge after Transfer: Social Worker Palliative Care Institutional Level of Care: Skilled - Diagnosis (1) Acute on chronic respiratory failure with hypoxia and hypercapnia Priority: Primary Status: Acute (2) Acute exacerbation of chronic obstructive airways disease Priority: Secondary Status: Acute (3) Anemia Priority: Secondary Status: Chronic (4) Aortic stenosis Priority: Secondary Status: Chronic (5) Pulmonary HTN Priority: Secondary Status: Chronic (6) Chronic diastolic heart failure Priority: Secondary Status: Chronic (7) DVT prophylaxis Priority: Secondary Status: Acute Prognosis: Poor - Transfer Medications Prescriptions: LORazepam Oral Conc [Ativan Oral Conc] 0.5 mg SL Q4HR PRN 4 Days #15 mls PRN Reason: Anxiety Morphine Sulfate Oral CONC [Roxanol Oral Conc] 2.5 mg SL Q6HR PRN 4 Days #15 oral.syg PRN Reason: pain or shortness of breath Home Medications: Aspirin Enteric Coated [Aspirin EC] 81 mg PO DAILY #30 tablet. 03/30/18 [Rx] Folic Acid 1 mg PO DAILY 03/30/18 [History] Hydroxychloroquine Sulfate [Plaquenil] 200 mg PO DAILY 03/30/18 [History] Leflunomide 20 mg PO DAILY 03/30/18 [History] Omeprazole [PriLOSEC] 20 mg PO DAILY 03/30/18 [History] Tiotropium Br/Olodaterol HCl [Stiolto Respimat Inhal [place]] 2 puff IH DAILY 03/30/18 [History] Naproxen Sodium [Aleve] 220 mg PO Q12-24H PRN 04/22/18 [History] Fluticasone Propionate [Flovent Hfa] 1 puff IH BID 07/16/18 [History] Furosemide [Lasix] 20 mg PO DAILY PRN #15 tablet 07/19/18 [Rx] LORazepam Oral Conc [Ativan Oral Conc] 0.5 mg SL Q4HR PRN 4 Days #15 mls 12/15/18 [Rx] Morphine Sulfate Oral CONC [Roxanol Oral Conc] 2.5 mg SL Q6HR PRN 4 Days #15 oral.syg 12/15/18 [Rx] Allergies/Adverse Reactions: Allergy/AdvReac Type Severity Reaction Status Date / Time Sulfa (Sulfonamide AdvReac See Verified 12/09/18 10:32 Antibiotics) Comments - Respiratory Orders Oxygen / L per min (titrate to pt's comfort) Smoking Cessation: Smoking cessation has been advised. For more information, call the [place] Tobacco Quit Line at 5-498-OILX-NOW. - Diet Orders No Concentrated Sweets CERTIFICATION: I certify that the transfer of the above named patient to an Extended Care Facility is necessary for the continuing treatment of the diagnosis listed. The above information is true and accurate reflection of patient's current condition. Confidential - Redisclosure prohibited without a patient's written consent.
[2018-12-15 15:39] VITALS: BP 115/62
[2018-12-16] MEDS ORDERED: Aspirin 81 MG TAB.CHEW PO SCH (09:00)
== END 2018-12-15 15:59 | disposition hospice, inpatient (51) | DRG 208 ==
LOC: 3BNU 10:24 → EMEROOARM 10:24 → SUATTDRO 12:40 → 3BNU 13:10 → 2NENU 12-09 13:27 → ICNU 12-10 06:12 → 2ANU 12-11 11:08 → ICNU 12-12 22:10 → 2ANU 12-14 16:41
PROVIDERS: ADMIT Internal Medicine; ATTEND Internal Medicine